=== PATIENT | male | born 1970 | race Caucasian/White ===

== ENCOUNTER 2024-01-07 13:59 | Emergency (ER) | payer OTHER, MEDICARE, SELFPAY ==
[2024-01-07] VITALS (7 sets, daily range): BP systolic 102–159; BP diastolic 47–103; PULSE 81–106; RESP 9–20; TEMP 36.5–36.8; O2SAT 97–98
--- NOTE | 2024-01-07 14:15 | DI.CT_ITS ---
Exam(s) CT HEAD WO EXAM: CT HEAD WO CLINICAL HISTORY: ams. TECHNIQUE: Imaging Protocol: Axial computed tomography images with coronal and sagittal reformatted images were created and reviewed COMPARISON: No exams were available for comparison FINDINGS: Ventricles and Extra axial spaces: Normal in size and morphology for the patient's age. Hemorrhage: None. Cerebral parenchyma: Normal. Midline shift: None. Brainstem/Cerebellum: Normal. Calvarium: Normal. Visualized Paranasal sinuses/Mastoids: Clear. Soft Tissues: Unremarkable. IMPRESSION: No acute intracranial process. RADIATION DOSE DELIVERED: Total DLP DATA REPOSITORY: All CT scans at this facility are submitted to the National Radiology Data Registry (NRDR) Dose Index Registry (DIR) with the [employer] ([employer]). RADIATION OPTIMIZATION: All CT scans at this facility use at least one of these dose optimization te chniques: automated exposure control; mA and/or kV adjustment per patient size (includes targeted exa ms where dose is matched to clinical indication); or iterative reconstruction.
--- NOTE | 2024-01-07 14:15 | RT.EKG_ITS ---
APPROVED REPORT Exam: Resting ECG Reason for Exam: ams Patient Location: E HR:79 bpm ECG Measurements Heart Rate 79 AXIS AR 179 P 65 QRSd 78 QRS 53 QT 372 T 60 QTc 427 Conclusion Sinus rhythm 79 normal axis no stemi
--- NOTE | 2024-01-07 14:22 | ED.GENADUL_ITS ---
Discharge Plan Disposition Patient Disposition: Home Discharge Details Clinical Impression: Hypoglycemia, Altered mental status, Hypokalemia Primary Care Provider: Yobany Fuller ED Provider: Meka Calderon Home Meds and New Rx's Prescriptions: No Action atorvastatin [Lipitor] 80 mg tablet 80 mg PO DAILY pantoprazole 40 mg tablet,delayed release (DR/EC) 40 mg PO DAILY ibuprofen 800 mg tablet 800 mg PO TID PRN bupropion HCl 300 mg tablet extended release 24 hr 300 mg PO QAM Incruse Ellipta 62.5 mcg/actuation blister with device 1 inh IH Q24H (DME) Truetrack Test 1 EACH strip 1 ea Miscellaneous BID levothyroxine [Synthroid] 25 MCG tablet 25 mcg PO DAILY (DME) blood-glucose meter [Truetrack Blood Glucose System] 1 EACH kit 1 ea Miscellaneous BID insulin aspart U-100 [Novolog U-100 Insulin aspart] 100 UNIT/1 ML solution 20 sliding scale dose Sub-Q DIRECTED Rx Instructions: 20 units TID as needed per sliding scale glucose 4 GM tablet,chewable 5 gm PO TID PRN montelukast [Singulair] 10 MG tablet 10 mg PO DAILY gabapentin 100 MG capsule 100 mg PO AM Patient Comments: 02/14/18 PER PT. TAKES 100 MG AM, AND AT 1200 PM AND 300 MG AT HS. lisinopril 40 MG tablet 40 mg PO DAILY albuterol sulfate 5 MG/1 ML solution 2.5 mg Inhalation Q4H PRN Levemir U-100 Insulin 100 UNIT/1 ML solution Sub-Q DIRECTED budesonide-formoterol [Symbicort] 10.2 GM HFA aerosol inhaler 2 puff Inhalation BID ProAir RespiClick 90 MCG aerosol powdr breath activated 90 mcg Inhalation Q4H PRN TRUETRACK LANCETS Topical BID Tudorza Pressair 400 MCG aerosol powdr breath activated 400 mcg Inhalation Q12H PRN allopurinol 300 MG tablet 300 mg PO DAILY lamotrigine 25 MG tablet 25 mg PO BID oxycodone 15 MG tablet 15 mg PO Q6H PRN Hold Instructions: fired from pain management contract oxycodone [OxyContin] 60 MG tablet,oral only,ext.rel.12 hr 60 mg PO Q12H PRN Hold Instructions: fired from pain management program insulin glargine [Basaglar KwikPen U-100 Insulin] 100 unit/mL (3 mL) insulin pen 10 unit subcut QPM methadone 40 mg tablet,soluble 40 mg PO DAILY Discharge Instructions Instructions: Hypoglycemia in a Person with Diabetes (ED) Additional Instructions: monitor you blood glucose levels take medications as prescribed you've been placed on care management follow up to establish primary care Discharge Data Discharge Date/Time-TO BE ENTERED AT DEPARTURE: 01/07/24 16:52 HPI General Date/Time Provider Initiated Documentation: 01/07/24 14:02 . Limitations to Documentation: altered mental status . Information obtained by: patient, family and EMS . HPI Narrative: 53-year-old gentleman with past medical history of opiate use disorder, now on methadone, diabetes, now on insulin, hypertension presents for evaluation of altered mental status. Patient reports that his blood sugar was high in the 300s this morning and he gave himself his sliding dose insulin which was 10 units. He does have a Dexcom monitor in place. He reports that his blood sugar then dropped down to the 40s. His partner, at bedside, reports giving him chocolate and other candies and juices to try and increase his blood sugar but she states that it seemed like it would not come up. She states that the patient seems very sleepy. EMS reports on their arrival his blood sugar was 116. On arrival to the emergency department it is measured at 160. Although his Dexcom is reading lower than that. He denies any drug or alcohol use. He does report that he did take his baclofen today. He reports that he also took his methadone this morning. He states that he recently started on methadone, this is the second day taking the medication. He denies any oxycodone use or any other opiate use. Related Data Home Medications Medication Instructions Recorded Confirmed Truetrack Lancets topical BID 11/01/17 01/01/19 albuterol sulfate 5 mg/mL(0.5 %) 2.5 mg inhalation Q4H PRN 11/01/17 01/07/24 solution for nebulization albuterol sulfate 90 mcg/actuation 90 mcg inhalation Q4H PRN 11/01/17 01/07/24 breath activated powder inhaler (ProAir RespiClick) blood sugar diagnostic (Truetrack 11/01/17 01/07/24 Test strips) blood-glucose meter (Truetrack 11/01/17 01/07/24 Blood Glucose System kit) budesonide-formoterol HFA 160 2 puff inhalation BID 11/01/17 01/07/24 mcg-4.5 mcg/actuation aerosol inhaler (Symbicort) gabapentin 100 mg capsule 100 mg PO AM 11/01/17 01/07/24 glucose 4 gram chewable tablet 5 gm PO TID PRN 11/01/17 01/07/24 insulin aspart U-100 100 unit/mL 20 sliding scale dose subcut 11/01/17 01/07/24 subcutaneous solution (Novolog DIRECTED U-100 Insulin aspart) insulin detemir U-100 100 unit/mL subcut DIRECTED 11/01/17 01/01/19 subcutaneous solution (Levemir U-100 Insulin) levothyroxine 25 mcg tablet 25 mcg PO DAILY 11/01/17 01/07/24 (Synthroid) lisinopril 40 mg tablet 40 mg PO DAILY 11/01/17 01/07/24 montelukast 10 mg tablet 10 mg PO DAILY 11/01/17 01/07/24 (Singulair) aclidinium bromide 400 400 mcg inhalation Q12H PRN 02/14/18 01/07/24 mcg/actuation breath activated powder inhaler (Tudorza Pressair) allopurinol 300 mg tablet 300 mg PO DAILY 02/14/18 01/07/24 lamotrigine 25 mg tablet 25 mg PO BID 02/14/18 01/07/24 oxycodone 15 mg tablet 15 mg PO Q6H PRN 02/14/18 01/07/24 oxycodone 60 mg tablet,crush 60 mg PO Q12H PRN 02/14/18 01/07/24 resistant,extended release 12 hr (OxyContin) atorvastatin 80 mg tablet (Lipitor) 80 mg PO DAILY 11/08/18 01/07/24 bupropion HCl 300 mg 24 hr tablet, 300 mg PO QAM 11/08/18 01/07/24 extended release ibuprofen 800 mg tablet 800 mg PO TID PRN 11/08/18 01/07/24 pantoprazole 40 mg tablet,delayed 40 mg PO DAILY 11/08/18 01/07/24 release umeclidinium 62.5 mcg/actuation 1 inh inhalation Q24H 11/08/18 01/07/24 blister powder for inhalation (Incruse Ellipta) insulin glargine 100 unit/mL (3 10 unit subcut QPM 01/07/24 01/07/24 mL) subcutaneous pen (Basaglar KwikPen U-100 Insulin) methadone 40 mg soluble tablet 40 mg PO DAILY 01/07/24 01/07/24 Allergies Allergy/AdvReac Type Severity Reaction Status Date / Time tapentadol HCl [From Nucynta] Allergy Severe DYSPNEA Unverified 01/07/24 15:14 naproxen [From Naprosyn] Allergy Intermediate RASH Unverified 01/07/24 15:14 varenicline tartrate Allergy Mild MOOD SWINGS Unverified 01/07/24 15:14 [From Chantix] SSRI Allergy Intermediate SEROTONIN Uncoded 01/07/24 15:14 SYNDROME General Stated Complaint: Diabetes ROQUE: 3 Exam Narrative Exam Narrative: Review of Systems: All systems reviewed & are unremarkable except as noted in HPI and below Well-developed, mild distress NCAT PERRL, pupils about 1 to 2 mm, normal conjunctiva Edentulous RRR, blood pressure low in the low 100s Unlabored respiratory effort, no hypoxia, clear bilaterally Nondistended abdomen, nontender Extremities w/o deformity, no cyanosis, no edema No rashes or lesions. Speaks to me with eyes closed, will open when I ask. Answers slowly, seems to fall asleep but wakes up with light stimuli. Partner reports speech seems slurred however without his teeth, I am not appreciating slurred speech more slurred speech. No facial droop or asymmetry, normal strength and so it sensation throughout Course Vital Signs Vital signs: Vital Signs Pulse 83 01/07/24 14:00 Respiratory Rate 20 01/07/24 14:00 Blood Pressure 102/47 L 01/07/24 14:00 Pulse Oximetry 97 01/07/24 14:00 Temperature 36.5 C 01/07/24 14:18 Temperature Source Temporal Artery Scan 01/07/24 14:18 Pulse 83 01/07/24 14:00 Respiratory Rate 20 01/07/24 14:00 Respiratory Effort Normal 01/07/24 14:17 Blood Pressure 102/47 L 01/07/24 14:00 Blood Pressure Position Sitting 01/07/24 14:00 Pulse Oximetry 97 01/07/24 14:00 Oxygen Delivery Method Room Air 01/07/24 14:00 Oxygen Flow Rate 0 01/07/24 14:00 Pain Level 0 01/07/24 14:00 Medical Decision Making Emergent evaluation of altered mental status and hypoglycemia. Patient is not on any oral hypoglycemic agents. Concern for possible opiate involvement or polypharmacy causing his depressed mental status at this time. Right now there are no signs of infectious etiology. His blood sugar seems to be maintaining. Will evaluate lab work, urinalysis, drug screen, alcohol level and CT imaging of the head to evaluate for possible sources of altered mental status. Will monitor closely for any worsening. Right now the patient is maintaining his airway. I have considered giving Narcan, but he is awake and alert enough and protecting his airway that I do not feel is indicated at this time. 1500 patient reports to nurse that the methadone clinic gave him tomorrow's dose because they'll be closed for Easter. My suspicion is that he has taken both doses today and this is the cause of his depressed mental status, tho he denies taking two doses today. Labs reviewed. No leukocytosis. No anemia. Potassium slightly low at 3.2, oral supplementation was given. No evidence of DKA or HHS on laboratory evaluation. No signs of urine infection. Tox positive for methadone, cocaine and THC. On reevaluation, the patient was sitting in bed with his partner ea ting an egg salad sandwich, completely alert and friendly. At this time he is stable for discharge home. He was placed on a referral for care management to help establish primary care. He is advised to monitor glucose levels closely and hopefully primary care can help manage his glucose instability. Medical Records Medical records reviewed: Yes I reviewed the patient's medical records. Lab Data Lab results reviewed: Yes I reviewed the patient's lab results. Quality:[facility] Health Related Social Needs: No Data to Display [facility] All Active Problems (Updated 01/07/24 @ 16:40 by Meka Calderon MD) Hypokalemia (Acute) Altered mental status (Acute) Hypoglycemia (Acute) Ulnar neuropathy of right upper extremity (Acute) Carpal tunnel syndrome on both sides (Acute) Medical History Pes planovalgus Rotator cuff syndrome Intermittent claudication [facility] (current[facility] use of insulin Controlled substance agreement signed Long-term use of high-risk medication Tobacco dependence Chronic pain syndrome Cervical radiculopathy Anxiety Depression Gout Leg cramps Insomnia COPD (chronic obstructive pulmonary disease) GERD (gastroesophageal reflux disease) Hypothyroidism Mixed hyperlipidemia Diabetes Benign essential hypertension Surgical History History of wisdom tooth extraction Family History Father No problems noted. Mother Cancer Brother HIV (human immunodeficiency virus infection) Social History Smoking/Tobacco Use Status: Current every day Tobacco Type: cigarettes Smoking risk assessment performed?: Yes Alcohol Intake: former Substance use type: marijuana Household members: spouse Housing: house current occupation: shipping and recieving at the [employer] What type of physical activity do you participate in: walking and additional Details: yard work, splitting wood
[2024-01-07 14:30] LABS: BE (Venous) 4 mmol/L (-2-3); HCO3 (Venous) 28 mmol/L (23-28); O2 Sat (Venous) 92 %; TCO2 (Venous) 26 mmol/L (24-29); pCO2 (Venous) 46 mmHg (41-51); pO2 (Venous) 55 mmHg
[2024-01-07 14:36] LABS: Abs Immature Grans 0.04 10^3/uL (0.0-0.06); Absolute Basophil Count 0.06 10^3/uL (0.0-0.2); Absolute Eosinophil Count 0.28 10^3/uL (0.0-0.7); Absolute Lymphocyte Count 3.22 10^3/uL (1.2-3.4); Absolute Monocyte Count 0.62 10^3/uL (0.1-0.8); Absolute Neutrophil Count 5.89 10^3/uL (1.2-6.7); Basophils % 0.6; Eosinophils % 2.8; HCT 39.6 % (40.0-50.0); HGB 13.5 g/dL (13.5-17.5); Immature Grans % 0.4; Lymphocytes % 31.8; MCHC 34.1 % (32.0-36.0); MCV 85 fL (80-95); MPV 8.5 fL (8.0-11.0); Monocytes % 6.1; Neutrophils % 58.3; Platelet Count 394 10^3/uL (130-400); RBC 4.66 10^6/uL (4.36-5.78); RDW-SD 40.1 fL; WBC 10.11 10^3/uL (4.4-10.8)
[2024-01-07 14:56] LABS: ALT 20 U/L (16-63); AST 12 U/L (15-37); Albumin 3.9 g/dL (3.4-5.0); Alkaline Phosphatase 65 U/L (46-116); BUN 16 mg/dL (7-18); Bilirubin, Total 0.4 mg/dL (0.2-1.0); Calcium 9.1 mg/dL (8.5-10.1); Chloride 102 mmol/L (98-107); ETHANOL BLOOD < 3.0 mg/dL (<10); Estimated GFR 91.12 (mL/min/1.73m2); Glucose 149 mg/dL (74-106); Magnesium 1.8 mg/dL (1.8-2.4); Potassium 3.2 mmol/L (3.5-5.1); Sodium 140 mmol/L (136-145); TSH 3.47 uIU/Ml (0.36-3.74); Total Protein 7.3 g/dL (6.4-8.2)
--- NOTE | 2024-01-07 16:01 | DI.VRAD_ITS ---
PROCEDURE INFORMATION: Exam: CT Head Without Contrast Exam date and time: 01/07/2024 2:40 PM Age: 53 years old Clinical indication: Altered mental status/memory loss TECHNIQUE: Imaging protocol: Computed tomography of the head without contrast. COMPARISON: No relevant prior studies available. FINDINGS: Brain: Unremarkable. No intracranial hemorrhage. Unremarkable white matter. No mass effect. Cerebral ventricles: No ventriculomegaly. Paranasal sinuses: Visualized sinuses are unremarkable. No fluid levels. Mastoid air cells: Visualized mastoid air cells are well aerated. Orbital cavities: Radiopaque densities are noted in the posterior aspect of the globe bilaterally and relative symmetrically may represent prior globe surgery. Dental: The patient is edentulous. Bones/joints: Postsurgical changes of the cervical spine. Soft tissues: Unremarkable. IMPRESSION: 1. No acute intracranial abnormality. 2. Radiopaque densities in the posterior aspect of the globes of uncertain etiology. Recommend MRI for further evaluation. Dictated and Authenticated by: Izzy Christine MD. Ordering:STAN Alcocer MD
[2024-01-07 16:19] LABS: Bilirubin Negative (Negative); Blood Negative (Negative); Clarity Clear (Clear); Glucose 500 mg/dL (Negative); Ketones Negative (Negative); Leukocyte Esterase Negative (Negative); Nitrite Negative (Negative); Specific Gravity 1.015 (1.005-1.025); Urobilinogen 0.2 mg/dL (Up to 0.2); pH 5.5 (5-8)
[2024-01-07 16:28] LABS: *AMPHETAMINES SCREEN URINE Negative (Negative); *BARBITURATES SCREEN URINE Negative (Negative); *BENZODIAZEPINES SCREEN URINE Negative (Negative); Cannabinoids THC Positive (Negative); Cocaine Screen,Urine Positive (Negative); METHADONE URINE SCREEN Positive (Negative); OPIATES URINE SCREEN Negative (Negative); Tricyclic Antidepressants Negative (Negative)
--- NOTE | 2024-01-07 16:51 | NUR.NOTE ---
Referral given to Care Managers for assistance Obtaining a Primary Care Provider as soon as possible.
== END 2024-01-07 16:52 | disposition home or self-care (01) ==
LOC: ER 16:49
PROVIDERS: Emergency Provider Emergency Medicine; PCP Nurse Practitioner
DX: E87.6 Hypokalemia (principal); R41.82 Altered mental status, unspecified; E16.2 Hypoglycemia, unspecified; F11.20 Opioid dependence, uncomplicated
CPT/HCPCS: 80053; 80307; 82805; 93005; 99283; 70450; 80320; 81003; 83735; 84443; 85025; 93010

== ENCOUNTER 2024-02-03 15:34 | Outpatient (REF) | payer MEDICARE, SELFPAY ==
[2024-02-03 15:22] LABS: COMMENT (LAB VIEW ONLY) 151.65 mg/dL; Microalb ug/mg Crea 7.5 ug/mg Cr
[2024-02-03 16:03] LABS: Hemoglobin A1C 9.8 % (<5.7)
[2024-02-03 22:08] LABS: Rheumatoid Factor <8.6 IU/mL (<12.0)
[2024-02-06 09:38] LABS: Cyclic Citrullinated Peptide <2.5 U/mL (<5.0)
[2024-02-06 11:41] LABS: Lyme Ab w Rflx to Lyme Confirm Negative (Negative)
[2024-02-06 13:50] LABS: ANA Interpretation Negative (Negative)
[2024-02-07 15:49] LABS: Anaplasma phagocytophilum Negative (Negative); B. miyamotoi PCR Negative (Negative); Babesia divergens/MO-1 Negative (Negative); Babesia duncani Negative (Negative); Babesia microti Negative (Negative); Ehrlichia chaffeensis Negative (Negative); Ehrlichia ewingii/canis Negative (Negative); Ehrlichia muris eauclairensis Negative (Negative)
== END 2024-02-03 15:35 | disposition home or self-care (01) ==
LOC: NCHCN 15:34
PROVIDERS: PCP Nurse Practitioner; Visit Provider Student in an Organized Health Care Education/Training Program
DX: E11.9 Type 2 diabetes mellitus without complications (principal); M25.561 Pain in right knee
CPT/HCPCS: 86200; 87798; 82043; 82570; 83036; 86038; 86431; 86618

== ENCOUNTER → 2024-02-29 01:43 | Outpatient (CLI) | payer MEDICARE, MEDICAID, SELFPAY ==
--- NOTE | 2024-02-29 | DI.RAD_ITS ---
Exam(s) XR HAND LT COMPLETE EXAM: XR HAND LT COMPLETE CLINICAL HISTORY: LT HAND PAIN, M79.642,NODULE LT SIDE 5TH METACARPAL. TECHNIQUE: 2D digital imaging was performed. Three views. COMPARISON: CR XR HAND RT COMPLETE from 02/29/2024 FINDINGS: BONES: No acute fracture is present. No bony destructive lesion is seen. Benign-appearing cyst in th e distal ulna. JOINTS: No dislocation present. No significant degenerative changes . SOFT TISSUE: A BB marker was placed at the soft tissue nodule at the dorsum of the hand at the 5th me tacarpal. There is a visible soft tissue prominence containing a calcification.. IMPRESSION: Soft tissue nodule containing calcification. No bony abnormality. DATA REPOSITORY: RADIATION DOSE DELIVERED:
--- NOTE | 2024-02-29 | DI.RAD_ITS ---
Exam(s) XR HAND RT COMPLETE EXAM: XR HAND RT COMPLETE CLINICAL HISTORY: RT HAND PAIN, M79.641,? JOINT CHANGES. TECHNIQUE: 2D digital imaging was performed. COMPARISON: No exams were available for comparison FINDINGS: 3 views No evidence of fracture or dislocation. No degenerative changes are noted the 1st carpometacarpal vijaya int. There is a BB marker on the dorsal aspect of the wrist. No osseous lesion at this level. No s oft tissue calcifications. Small soft tissue density noted. IMPRESSION: No acute osseous findings. DATA REPOSITORY: RADIATION DOSE DELIVERED:
== END ==
PROVIDERS: PCP Nurse Practitioner; Visit Provider Student in an Organized Health Care Education/Training Program
DX: M79.641 Pain in right hand (principal); M79.642 Pain in left hand
CPT/HCPCS: 73130

== ENCOUNTER 2024-03-09 01:09 | Outpatient (CLI) | payer MEDICARE, MEDICAID, SELFPAY ==
--- NOTE | 2024-03-12 10:26 | W.NUTRFU ---
Date of service: 03/09/24 Time of Service: 12:00 Nutrition Note NOTE: Ashkan comes in for referred nutrition visit today with his gf, Smitha, regarding diabetes education/mgt. Pt is a 53yo male who is insulin dependent type II diabetic, with a PMH including HLD, Depression, Anxiety, current tobacco use, HTN, Gout, COPD, hpothyroidism, opiod dependency. Ashkan is anxious about today's appointment and Smitha is good at reassuring him and takes notes during our visit as they have indicated Ashkan is forgetful and has a lower level of understanding concepts regarding management of diabetes and diet terms, etc... I asked about insulin and he seems to be a poor historian. He does not check his glucose at home and seems to go around chasing his symtoms of highs and lows. He has a very high added sugar intake and we reviewed his coffee intake with 5-6 spoons of sugar in each one at multiple cups per day. I highlighted this has to change as his sugars are shooting up and then having concerns with lows (which symptoms probably occuring at higher ranges than normal due to him normally living in hyperglycemic state. His regular diet, from verbal recall, is high in refined grains and added sugar, low in fiber and non-starchy veggies. He does walk about 3 miles per day. We spent the bulk of time reviewing his recommended carb goal of ~200g per day or ~12 servings of CHO foods - we looked at handout and reviewed sources of carbs and also highlighted added sugar intake needs to <40g per day. Discussing general good nutrition practices were discussed at length. We discussed insulin as he seems confused on what his current regimen is and doesn't know his sliding scale for insulin aspart. I am a little in the dark as well as it seems there is not a reliable medical record history with his current provider at the time of referral. States he was told to stop the aspart (maybe getting too many lows with inappropriate dosing?). Reviewed that he needs to know his glucose with meal time insulin if he's going to take it and offered CGM ([employer] G7) but his phone would not support the yolanda as his OS is not compatible. He does have a tablet at home so sent him with the CGM and Smitha will help with finding the yolanda and getting the sensor placed on his tricep area as we reviewed. Has Rx for Levemir and we reviewed taking this at night and instructions for increasing every 3 days by 2 units until FBG is <140. Made plan to call him and check about how CGM is working and glucose numbers. Will continue to reach out for support and insulin education as it is it is modified. Time Spent in Nutritional Counseling and Treatment: 45 minutes
== END 2024-03-09 01:10 | disposition home or self-care (01) ==
LOC: DS 01:10
PROVIDERS: PCP Nurse Practitioner; Visit Provider Dietitian, Registered
DX: E11.9 Type 2 diabetes mellitus without complications (principal)
CPT/HCPCS: 00123; 97802

== ENCOUNTER 2024-04-15 12:26 | Emergency (ER) | payer MEDICARE, MEDICAID, SELFPAY ==
[2024-04-15 12:30] VITALS: BP 128/69; PULSE 85; RESP 17; TEMP 36.6; O2SAT 99
--- NOTE | 2024-04-15 13:45 | DI.RAD_ITS ---
Exam(s) XR CHEST 2V PA LATERAL EXAM: XR CHEST 2V PA LATERAL CLINICAL HISTORY: sob. TECHNIQUE: 2D digital imaging was performed. COMPARISON: No exams were available for comparison FINDINGS: 2 views: Anterior fusion plate in the lower cervical spine noted. Heart size is normal. The mediastinum is not widened. No radiograph findings on the frontal view. However, on the lateral view there is pleural based post erior density seen projected over what appears to be T12 vertebral body. Difficult to determine if t his is in the vertebral body or within the lung at this level. There is a wedge compression fracture of L1, age indeterminate IMPRESSION: Nodular density posteriorly as seen on the lateral view. Recommend follow-up CT scan to determine if this is concerning pathology in the lung or vertebral body. DATA REPOSITORY: RADIATION DOSE DELIVERED:
[2024-04-15 14:22] VITALS: BP 132/63; PULSE 59; O2SAT 97
--- NOTE | 2024-04-15 14:37 | ED.GENADUL_ITS ---
Discharge Plan Disposition Patient Disposition: Home Condition: Stable Discharge Details Clinical Impression: Contusion of rib on left side, Seizure Primary Care Provider: Unknown,Unknown ED Provider: Meka Calderon Home Meds and New Rx's Prescriptions: New levetiracetam [Keppra] 500 mg tablet 500 mg PO BID Qty: 60 0RF lidocaine [Lidoderm] 5 % adhesive patch,medicated 1 patch topical DAILY Qty: 15 0RF Rx Instructions: leave on most painful area for up to 12 hrs No Action atorvastatin [Lipitor] 80 mg tablet 80 mg PO DAILY bupropion HCl 300 mg tablet extended release 24 hr 300 mg PO QAM Patient Comments: 1/2 tab (DME) Truetrack Test 1 EACH strip 1 ea Miscellaneous BID levothyroxine [Synthroid] 25 MCG tablet 25 mcg PO DAILY (DME) blood-glucose meter [Truetrack Blood Glucose System] 1 EACH kit 1 ea Miscellaneous BID insulin aspart U-100 [Novolog U-100 Insulin aspart] 100 UNIT/1 ML solution 20 sliding scale dose Sub-Q DIRECTED Rx Instructions: 20 units TID as needed per sliding scale glucose 4 GM tablet,chewable 5 gm PO TID PRN lisinopril 40 MG tablet 20 mg PO DAILY albuterol sulfate 5 MG/1 ML solution 2.5 mg Inhalation Q4H PRN (DME) TRUETRACK LANCETS 0 .ROUTE .MEDSUPPLY Tudorza Pressair 400 MCG aerosol powdr breath activated 400 mcg Inhalation Q12H PRN allopurinol 300 MG tablet 100 mg PO BID insulin glargine [Basaglar KwikPen U-100 Insulin] 100 unit/mL (3 mL) insulin pen 10 unit subcut QPM baclofen 20 mg tablet 20 mg PO TID metformin 500 mg tablet 500 mg PO BID Discharge Instructions Instructions: Rib Fracture or Bruised Rib ED Additional Instructions: * Continue Motrin and Tylenol for pain. Lidocaine patch to the area of rib injury. There is no obvious fracture noted. * Use the incentive spirometer at least once hourly so that you can practice reginald ing deep breaths and avoid developing pneumonia * Please start seizure medication as prescribed. A referral has been placed for you to follow-up with neurology. Referrals: Emily Castelan MD [ [facility] STAFF PHYSICIAN] - Discharge Data Discharge Date/Time-TO BE ENTERED AT DEPARTURE: 04/15/24 16:46 HPI General Date/Time Provider Initiated Documentation: 04/15/24 12:36 . Limitations to Documentation: no limitations . Information obtained by: patient and family . HPI Narrative: 53-year-old gentleman with past medical history of COPD, hypertension, diabetes, seizure disorder presents for evaluation left rib pain. He reports that he has bruising and swelling to the left chest wall after a fall yesterday. He reports he fell because he had a seizure. He states that he does have a history of seizures, but has not been medicated for some time. His regional operations director states that he did have 2 seizures yesterday. She describes his seizures stiffness and generalized shaking. No urinary incontinence no tongue biting. She reports that he reports that. Of confusion and not knowing where he is afterwards. He states that his last seizure before this was about 7 days ago. He states that he has seizures this frequently and does not take medicine. Related Data Home Medications Medication Instructions Recorded Confirmed Truetrack Lancets 11/01/17 04/15/24 albuterol sulfate 5 mg/mL(0.5 %) 2.5 mg inhalation Q4H PRN 11/01/17 04/15/24 solution for nebulization blood sugar diagnostic (Truetrack 11/01/17 04/15/24 Test strips) blood-glucose meter (Truetrack 11/01/17 04/15/24 Blood Glucose System kit) glucose 4 gram chewable tablet 5 gm PO TID PRN 11/01/17 04/15/24 insulin aspart U-100 100 unit/mL 20 sliding scale dose subcut 11/01/17 04/15/24 subcutaneous solution (Novolog DIRECTED U-100 Insulin aspart) levothyroxine 25 mcg tablet 25 mcg PO DAILY 11/01/17 04/15/24 (Synthroid) lisinopril 40 mg tablet 20 mg PO DAILY 11/01/17 04/15/24 aclidinium bromide 400 400 mcg inhalation Q12H PRN 02/14/18 04/15/24 mcg/actuation breath activated powder inhaler (Tudorza Pressair) allopurinol 300 mg tablet 100 mg PO BID 02/14/18 04/15/24 atorvastatin 80 mg tablet (Lipitor) 80 mg PO DAILY 11/08/18 04/15/24 bupropion HCl 300 mg 24 hr tablet, 300 mg PO QAM 11/08/18 04/15/24 extended release insulin glargine 100 unit/mL (3 10 unit subcut QPM 01/07/24 04/15/24 mL) subcutaneous pen (Basaglar KwikPen U-100 Insulin) baclofen 20 mg tablet 20 mg PO TID 04/15/24 04/15/24 levetiracetam 500 mg tablet 500 mg PO BID #60 tabs 04/15/24 (Keppra) lidocaine 5 % topical patch 1 patch topical DAILY #15 ea 04/15/24 (Lidoderm) metformin 500 mg tablet 500 mg PO BID 04/15/24 04/15/24 Previous Rx's Medication Instructions Recorded levetiracetam 500 mg tablet 500 mg PO BID #60 tabs 04/15/24 (Keppra) lidocaine 5 % topical patch 1 patch topical DAILY #15 ea 04/15/24 (Lidoderm) Allergies Allergy/AdvReac Type Severity Reaction Status Date / Time tapentadol HCl [From Nucynta] Allergy Severe DYSPNEA Unverified 04/15/24 14:03 naproxen [From Naprosyn] Allergy Intermediate RASH Unverified 04/15/24 14:03 varenicline tartrate Allergy Mild MOOD SWINGS Unverified 04/15/24 14:03 [From Chantix] SSRI Allergy Intermediate SEROTONIN Uncoded 04/15/24 14:03 SYNDROME General Stated Complaint: Chest/Rib ROQUE: 3 Exam Narrative Exam Narrative: Review of Systems: All systems reviewed & are unremarkable except as noted in HPI and below Well-developed, no acute distress NCAT PERRL, normal conjunctiva Multiple missing teeth, no intraoral trauma RRR bruising over left lateral lower ribs no crepitus Unlabored respiratory effort, pain with deep inspriation, clear bs bilaterally Nondistended abdomen , soft nontender Extremities w/o deformity, no cyanosis, no edema No rashes or lesions. no focal neurologic deficits Appropriate mood and affect Course Vital Signs Vital signs: Vital Signs Temperature 36.6 C 04/15/24 12:30 Pulse 85 04/15/24 12:30 Respiratory Rate 17 04/15/24 12:30 Blood Pressure 128/69 04/15/24 12:30 Pulse Oximetry 99 04/15/24 12:30 Temperature 36.6 C 04/15/24 12:30 Temperature Source Oral 04/15/24 12:30 Pulse 59 L 04/15/24 14:22 Respiratory Rate 17 04/15/24 12:30 Respiratory Effort Normal, Non-Labored 04/15/24 14:14 Respiratory Depth Normal 04/15/24 14:14 Respiratory Pattern Normal 04/15/24 14:14 Blood Pressure 132/63 04/15/24 14:22 Blood Pressure Position Sitting 04/15/24 12:30 Pulse Oximetry 97 04/15/24 14:22 Oxygen Delivery Method Room Air 04/15/24 14:22 Oxygen Flow Rate 0 04/15/24 14:22 Pain Level 8 04/15/24 14:22 Medical Decision Making Emergent evaluation of lateral chest wall pain after a fall from a seizure. Patient reports history of seizures, but is not currently medicated. Concern for possible rib fracture, pulmonary contusion. Also given his repeated seizures yesterday, concern for electrolyte derangement, intracranial process. He is unclear about what causes him to have seizures. Patient is amenable to getting blood work and CT imaging. Will load with Keppra. 1445 Chest x-ray reviewed, no obvious rib fracture noted, but there is an abnormality the posterior aspect, they are recommending CT imaging. Will order. ED imaging of the head is unremarkable. Chest CT does not reveal any fracture or abnormalities concurrent with the concern seen on the chest x-ray. Lab work reviewed. Mild anemia noted which should be followed by PCP. No electrolyte derangement. Mild hyperglycemia without evidence of DKA. Patient has been loaded with Keppra and a prescription has been sent to the pharmacy. He has been referred to neurology for follow-up of his recurrent seizures. He is recommended to follow-up closely with PCP for ongoing symptoms. Medical Records Medical records reviewed: Yes I reviewed the patient's medical records. Lab Data Lab results reviewed: Yes I reviewed the patient's lab results. 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 Mother Cancer Brother HIV (human immunodeficiency virus infection) Social History Smoking/Tobacco Use Status: Current every day Tobacco Type: cigarettes Smoking risk assessment performed?: Yes Alcohol Intake: former Drug use: Occasionally Substance use type: marijuana Household members: spouse Housing: house current occupation: shipping and recieving at the [employer] What type of physical activity do you participate in: walking and additional Details: yard work, splitting wood
--- NOTE | 2024-04-15 14:45 | DI.CT_ITS ---
Exam(s) CT CHEST WO EXAM: CT CHEST WO CLINICAL HISTORY: cxr abnormality. TECHNIQUE: Multi planar reconstructions were performed. CONTRAST MATERIAL: None COMPARISON: CR XR CHEST 2V PA LATERAL from 04/15/2024 FINDINGS: CHEST: LUNGS: There are slightly increased dependent markings in both lung bases, slightly more so on the le ft side, bordering on true infiltrate. No associated pleural effusions. There is a 4 millimeter aysha cified granuloma in posterior basal segment of the left lower lobe. No ominous pulmonary nodules kassy dent. Sclerotic density noted in the bilateral pedicles of T12 vertebral body which most probably co rresponds to the finding seen on the lateral chest x-ray. Similar findings not seen at other levels. No abnormal osseous findings in the transverse process is and medial ribs at this level.. There is a moderate wedge compression fracture of L1 noted, not appearing acute. MEDIASTINUM: There is no obvious hilar nor mediastinal adenopathy. Density in the anterior mediastina l fat noted which is probably thymus tissue. There is also slight prominence of the lobes of the thy roid gland. There is a fusion plate in the lower cervical spine noted.No obvious hilar nor mediastin al adenopathy. No axillary adenopathy. No supraclavicular adenopathy. Mild bilateral gynecomastia noted. CARDIAC: Heart size upper normal. No pericardial effusion.Caliber of the thoracic aorta is within no rmal limits. VISUALIZED UPPER ABDOMEN:Small gallstone noted. No significant adrenal masses. No splenomegaly. Ca lcifications are noted in the pancreatic head-uncinate process. OSSEOUS: As above.. IMPRESSION: 1. As above. Mild infiltrate in left lower lobe. No pleural effusions. 2. Benign-appearing osseous findings 3. No malignant-appearing findings to correspond to the density seen posteriorly on the lateral chest x-ray earlier today. Discussed by phone with ER physician RADIATION DOSE DELIVERED: 434.71mGy.cm Total DLP DATA REPOSITORY: All CT scans at this facility are submitted to the National Radiology Data Registry (NRDR) Dose Index Registry (DIR) with the [employer] (ACR). RADIATION OPTIMIZATION: All CT scans at this facility use at least one of these dose optimization te chniques: automated exposure control; mA and/or kV adjustment per patient size (includes targeted exa ms where dose is matched to clinical indication); or iterative reconstruction.
[2024-04-15 14:51] LABS: Abs Immature Grans 0.03 10^3/uL (0.0-0.06); Absolute Basophil Count 0.04 10^3/uL (0.0-0.2); Absolute Eosinophil Count 0.18 10^3/uL (0.0-0.7); Absolute Lymphocyte Count 2.03 10^3/uL (1.2-3.4); Absolute Monocyte Count 0.51 10^3/uL (0.1-0.8); Absolute Neutrophil Count 5.55 10^3/uL (1.2-6.7); Basophils % 0.5 %; Eosinophils % 2.2 %; HCT 36.7 % (40.0-50.0); HGB 12.4 g/dL (13.5-17.5); Immature Grans % 0.4 %; Lymphocytes % 24.3 %; MCH 29.3 pg (27.0-33.0); MCHC 33.8 % (32.0-36.0); MCV 87 fL (80-95); MPV 9.2 fL (8.0-11.0); Monocytes % 6.1 %; Neutrophils % 66.5 %; Platelet Count 256 10^3/uL (130-400); RBC 4.23 10^6/uL (4.36-5.78); RDW 13.3 % (11.8-14.1); RDW-SD 41.9 fL; WBC 8.34 10^3/uL (4.4-10.8)
[2024-04-15] MEDS: Lidocaine 5% Patch 1 PATCH TP (14:53)
[2024-04-15 15:06] LABS: ALT 18 U/L (16-63); AST 10 U/L (15-37); Albumin 3.5 g/dL (3.4-5.0); Alkaline Phosphatase 77 U/L (46-116); Anion Gap 6.8 mmol/L (3-11); BUN 12 mg/dL (7-18); Bilirubin, Total 0.29 mg/dL (0.2-1.0); CO2 29.2 mmol/L (21.0-32.0); Calcium 8.6 mg/dL (8.5-10.1); Chloride 104 mmol/L (98-107); Creatine Kinase 176 U/L (39-308); Estimated GFR 91.12 (mL/min/1.73m2); Glucose 234 mg/dL (74-106); Magnesium 1.8 mg/dL (1.8-2.4); Potassium 3.9 mmol/L (3.5-5.1); Sodium 140 mmol/L (136-145); Total Protein 6.9 g/dL (6.4-8.2)
--- NOTE | 2024-04-15 15:11 | DI.CT_ITS ---
Exam(s) CT HEAD WO EXAM: CT HEAD WO CLINICAL HISTORY: Seizure. TECHNIQUE: Imaging Protocol: Axial computed tomography images with coronal and sagittal reformatted images were created and reviewed COMPARISON: CT CT HEAD WO from 01/07/2024 FINDINGS: There are no skull fractures. There is no fluid in the visualized paranasal sinuses. There is no evidence of intracranial hemorrhage, mass effect, or shift of midline structures. There are no extra-axial fluid collections. The ventricles are not enlarged or shifted and there is no blo od within the ventricular system nor within the basal cisterns. IMPRESSION: No acute intracranial findings on this noninfused CT scan of the brain. No significant change compared to the CT scan of 01/07/2024. Report called by myself to ER provider RADIATION DOSE DELIVERED: 936.1mGy.cm Total DLP DATA REPOSITORY: All CT scans at this facility are submitted to the National Radiology Data Registry (NRDR) Dose Index Registry (DIR) with the [employer] (ACR). RADIATION OPTIMIZATION: All CT scans at this facility use at least one of these dose optimization te chniques: automated exposure control; mA and/or kV adjustment per patient size (includes targeted exa ms where dose is matched to clinical indication); or iterative reconstruction.
--- NOTE | 2024-04-15 15:17 | NUR.NOTE ---
Nursing Note: This RN resuming care of pt at this time
== END 2024-04-15 16:46 | disposition home or self-care (01) ==
PROVIDERS: Emergency Provider Emergency Medicine
DX: S20.212A Contusion of left front wall of thorax, initial encounter (principal); R56.9 Unspecified convulsions; E11.9 Type 2 diabetes mellitus without complications; W19.XXXA Unspecified fall, initial encounter
CPT/HCPCS: 36416; 71250; 80053; 82550; 82962; 96365; 99285; 70450; 71046; 83735; 85025; 99283; J1953

== ENCOUNTER 2024-05-03 22:38 | Emergency (ER) | payer MEDICARE, MEDICAID, SELFPAY ==
--- NOTE | 2024-05-03 22:30 | RT.EKG_ITS ---
APPROVED REPORT Exam: Resting ECG Reason for Exam: SYNCOPE Patient Location: E HR:74 bpm ECG Measurements Heart Rate 74 AXIS NJ 192 P 81 QRSd 97 QRS 73 QT 445 T 120 QTc 496 Conclusion Sinus rhythm...normal P axis, V-rate 60- 99 Abnormal T, consider ischemia, lateral leads...T <-0.20mV, I aVL V5 V6 Physician:no stemi
[2024-05-03 22:43] VITALS: BP 159/79; PULSE 83; RESP 18; TEMP 37.4; O2SAT 99
--- NOTE | 2024-05-03 22:45 | DI.CT_ITS ---
Exam(s) CT HEAD CERVICAL SPINE WO EXAM: CT HEAD CERVICAL SPINE WO CLINICAL HISTORY: fall, loc, hit head, seizure?. TECHNIQUE: Imaging Protocol: Axial computed tomography images with coronal and sagittal reformatted images were created and reviewed COMPARISON: CT CT HEAD WO from 04/15/2024 FINDINGS: CT Head: Ventricles and Extra axial spaces: Normal in size and morphology for the patient's age. Hemorrhage: None. Cerebral parenchyma: No evidence of an acute territorial infarct. Midline shift: None. Brainstem/Cerebellum: Normal. Calvarium: Normal. Visualized Paranasal sinuses/Mastoids: Clear. Soft Tissues: Unremarkable. CT Cervical Spine: Bones: No acute fracture or subluxation. There is anterior cervical disc fusion from C5 through C7. Moderately severe degenerative changes are present throughout the cervical spine. Soft Tissues: Unremarkable. Lung Apices: Clear. IMPRESSION: 1. No acute intracranial process. 2. No acute fracture or subluxation in the cervical spine. RADIATION DOSE DELIVERED: Total DLP DATA REPOSITORY: All CT scans at this facility are submitted to the National Radiology Data Registry (NRDR) Dose Index Registry (DIR) with the [employer] (ACR). RADIATION OPTIMIZATION: All CT scans at this facility use at least one of these dose optimization te chniques: automated exposure control; mA and/or kV adjustment per patient size (includes targeted exa ms where dose is matched to clinical indication); or iterative reconstruction.
--- NOTE | 2024-05-03 22:45 | DI.CT_ITS ---
Exam(s) CT CHEST W EXAM: CT CHEST W CLINICAL HISTORY: fall, hit left chest, eval for trauma TECHNIQUE: Imaging Protocol: Axial computed tomography images with coronal and sagittal reformatted images were created and reviewed CONTRAST MATERIAL: Intravenous: Omnipaque 350Contrast volume:70 mL. COMPARISON: CT CT CHEST WO from 04/15/2024 FINDINGS: Tracheobronchial tree: Patent where visualized. No evidence of bronchiectasis. Pulmonary parenchyma: No consolidation or dominant measurable mass. Atelectatic changes are seen in t he lung bases. There are few tiny noncalcified pulmonary nodules. The largest is in the right upper lobe and measures 3 mm (series 5, image 258). There is a calcified granuloma in the left lower lobe . Mediastinum and Johanne: No dominant adenopathy or fluid collection. The esophagus is unremarkable. The re is some fluid seen in the esophagus which may reflect reflux. Thyroid gland: Unremarkable. Pleura: No effusion or pneumothorax. Heart: The heart is not dilated. Coronary artery calcifications are present. No pericardial effusion . Aorta: Thoracic aorta non-dilated. Mild atherosclerotic calcification is present. Pulmonary arteries: Due to the timing of the bolus, there is suboptimal opacification of the pulmonar y arteries. Upper abdomen: Gallstones. Calcifications are seen in the head of the pancreas which may reflect pr ior episodes of pancreatitis. Lymph nodes: Within normal limits. Bones: Within normal limits for the patient's age. There is a nondisplaced subacute healing fracture of the lateral aspect of the right 6th rib. Nondisplaced a subacute healing fractures of the anteri or aspects of the left 6th through 8th ribs are noted. No acute nondisplaced fractures are visualize d. There is again seen anterior wedging of L1. Soft tissues: Bilateral mild gynecomastia. IMPRESSION: 1. No acute pulmonary process. No acute displaced rib fractures. 2. A few nonspecific noncalcified nodules in the lungs. Solid nodules smaller than 6 mm do not require routine follow-up in all patients with high clinical r isk; however, some nodules smaller than 6 mm with suspicious morphology, upper lobe location, or both may warrant follow-up at 12 months (grade 2A; weak recommendation, high-quality evidence). (Gisselle et al., 2017) Single solid noncalcified nodules. ???Solid nodules smaller than 6 mm (those 5 mm or smaller) do not require routine follow-up in patients at low risk (grade 1C; strong recommendation, low- or very-low- quality evidence). (Gisselle et al., 2017) 3. Subacute healing nondisplaced rib fractures. 4. Cholelithiasis. RADIATION DOSE DELIVERED: Total DLP DATA REPOSITORY: All CT scans at this facility are submitted to the National Radiology Data Registry (NRDR) Dose Index Registry (DIR) with the [employer] (ACR). RADIATION OPTIMIZATION: All CT scans at this facility use at least one of these dose optimization te chniques: automated exposure control; mA and/or kV adjustment per patient size (includes targeted exa ms where dose is matched to clinical indication); or iterative reconstruction.
[2024-05-03 22:52] LABS: BE (Venous) 3 mmol/L (-2-3); HCO3 (Venous) 29 mmol/L (23-28); O2 Sat (Venous) 95 %; TCO2 (Venous) 26 mmol/L (24-29); pCO2 (Venous) 49 mmHg (41-51); pH (Venous) 7.37 (7.31-7.41); pO2 (Venous) 72 mmHg
[2024-05-03 22:54] LABS: Abs Immature Grans 0.05 10^3/uL (0.0-0.06); Absolute Basophil Count 0.07 10^3/uL (0.0-0.2); Absolute Eosinophil Count 0.38 10^3/uL (0.0-0.7); Absolute Lymphocyte Count 4.37 10^3/uL (1.2-3.4); Absolute Neutrophil Count 4.72 10^3/uL (1.2-6.7); Basophils % 0.7 %; Eosinophils % 3.7 %; HCT 37.2 % (40.0-50.0); Immature Grans % 0.5 %; Lymphocytes % 42.9 %; MCH 29.5 pg (27.0-33.0); MCHC 34.9 % (32.0-36.0); MCV 84 fL (80-95); MPV 9.1 fL (8.0-11.0); Monocytes % 5.9 %; Neutrophils % 46.3 %; Platelet Count 297 10^3/uL (130-400); RBC 4.41 10^6/uL (4.36-5.78); RDW 13.2 % (11.8-14.1); RDW-SD 40.8 fL; WBC 10.19 10^3/uL (4.4-10.8)
[2024-05-03] MEDS: levETIRAcetam 2,000 MG in Normal Saline 100 ML 400 MG IVPB (22:56)
[2024-05-03 22:57] VITALS: RESP 18
--- NOTE | 2024-05-03 23:00 | ED.GENADUL_ITS ---
Discharge Plan Disposition Patient Disposition: Home Condition: Good Discharge Details Chief Complaint: AMS/LOC Clinical Impression: Concussion, Alcohol intoxication, Syncope Primary Care Provider: Brad Martino ED Provider: Ryan Banda Home Meds and New Rx's Prescriptions: No Action atorvastatin [Lipitor] 80 mg tablet 80 mg PO DAILY bupropion HCl 300 mg tablet extended release 24 hr 300 mg PO QAM Patient Comments: 1/2 tab (DME) Truetrack Test 1 EACH strip 1 ea Miscellaneous BID levothyroxine [Synthroid] 25 MCG tablet 25 mcg PO DAILY (DME) blood-glucose meter [Truetrack Blood Glucose System] 1 EACH kit 1 ea Miscellaneous BID insulin aspart U-100 [Novolog U-100 Insulin aspart] 100 UNIT/1 ML solution 20 sliding scale dose Sub-Q DIRECTED Rx Instructions: 20 units TID as needed per sliding scale glucose 4 GM tablet,chewable 5 gm PO TID PRN lisinopril 40 MG tablet 20 mg PO DAILY albuterol sulfate 5 MG/1 ML solution 2.5 mg Inhalation Q4H PRN (DME) TRUETRACK LANCETS 0 .ROUTE .MEDSUPPLY Tudorza Pressair 400 MCG aerosol powdr breath activated 400 mcg Inhalation Q12H PRN allopurinol 300 MG tablet 100 mg PO BID insulin glargine [Basaglar KwikPen U-100 Insulin] 100 unit/mL (3 mL) insulin pen 10 unit subcut QPM baclofen 20 mg tablet 20 mg PO TID metformin 500 mg tablet 500 mg PO BID levetiracetam [Keppra] 500 mg tablet 500 mg PO BID Qty: 60 0RF lidocaine [Lidoderm] 5 % adhesive patch,medicated 1 patch topical DAILY Qty: 15 0RF Rx Instructions: leave on most painful area for up to 12 hrs Discharge Instructions Instructions: Syncope (Fainting) (DC), Concussion, Adult ED Additional Instructions: At this time your CAT scans have returned negative for any significant abnormality. I am concerned that you may have suffered a mild concussion from the trauma to your head. Please stay well-hydrated, avoid alcohol use, and resume taking your antiepileptic medication as soon as possible. If you notice any worsening of your symptoms, or any new symptoms such as vomiting, diarrhea, fever, chills, shortness of breath, chest pain, numbness, weakness, or fainting , please return immediately to the emergency department for reevaluation. Please follow up with your primary care provider as soon as possible for reassessment and reevaluation. As always, it was a pleasure participating in your medical care today. Referrals: Brad Martino [Primary Care Provider] - [facility] General Date/Time Provider Initiated Documentation: 05/03/24 22:39 . HPI Narrative: 53-year-old male with a past medical history of seizures on Keppra, reactive airway disease, type 2 diabetes, GERD, hypothyroidism, hypertension, who has a history of frequent falls, and frequent episodes of syncope, who is cared for by his girlfriend, and cannot live alone per girlfriend. Girlfriend states that he has not been on any medications for the last month secondary to a lack of funding and insurance complications. Additionally they are currently homeless and staying at the [facility]. Today the patient was doing well, however earlier in the morning he was walking and per family members he was being clumsy and ran into a pillar with his head. He developed a small goose egg which eventually resolved. He went out motorcycling with some friends, came home, and then this evening while going to the bathroom he syncopized and hit his head quite firmly on the door. For the 2 hours following that event he was a bit more confused and in and out of it compared to normal. Eventually EMS was called and the patient was brought to the ER for further assessment. When EMS arrived the patient was talking but slightly confused. He had a few shots of alcohol prior to EMSs arrival. He had been asking for this because of pain in his left ribs secondary to previous rib fractures a month ago. EMS stated that he appeared intoxicated, and then on the way over he fell asleep and became less responsive. He was arousable with noxious stimuli, but otherwise refused to interact with them anymore. Patient has no complaints at this time. He is not interacting with medical staff currently to add to history. History was gathered via his significant other and EMS. Related Data Home Medications ?Medication ?Instructions ?Recorded ?Confirmed Truetrack Lancets 11/01/17 04/15/24 albuterol sulfate 5 mg/mL(0.5 %) 2.5 mg inhalation Q4H PRN 11/01/17 04/15/24 solution for nebulization blood sugar diagnostic (Truetrack 11/01/17 04/15/24 Test strips) blood-glucose meter (Truetrack 11/01/17 04/15/24 Blood Glucose System kit) glucose 4 gram chewable tablet 5 gm PO TID PRN 11/01/17 04/15/24 insulin aspart U-100 100 unit/mL 20 sliding scale dose subcut 11/01/17 04/15/24 subcutaneous solution (Novolog DIRECTED U-100 Insulin aspart) levothyroxine 25 mcg tablet 25 mcg PO DAILY 11/01/17 04/15/24 (Synthroid) lisinopril 40 mg tablet 20 mg PO DAILY 11/01/17 04/15/24 aclidinium bromide 400 400 mcg inhalation Q12H PRN 02/14/18 04/15/24 mcg/actuation breath activated powder inhaler (Tudorza Pressair) allopurinol 300 mg tablet 100 mg PO BID 02/14/18 04/15/24 atorvastatin 80 mg tablet (Lipitor) 80 mg PO DAILY 11/08/18 04/15/24 bupropion HCl 300 mg 24 hr tablet, 300 mg PO QAM 11/08/18 04/15/24 extended release insulin glargine 100 unit/mL (3 10 unit subcut QPM 01/07/24 04/15/24 mL) subcutaneous pen (Basaglar KwikPen U-100 Insulin) baclofen 20 mg tablet 20 mg PO TID 04/15/24 04/15/24 levetiracetam 500 mg tablet 500 mg PO BID #60 tabs 04/15/24 (Keppra) lidocaine 5 % topical patch 1 patch topical DAILY #15 ea 04/15/24 (Lidoderm) metformin 500 mg tablet 500 mg PO BID 04/15/24 04/15/24 Previous Rx's ?Medication ?Instructions ?Recorded levetiracetam 500 mg tablet 500 mg PO BID #60 tabs 04/15/24 (Keppra) lidocaine 5 % topical patch 1 patch topical DAILY #15 ea 04/15/24 (Lidoderm) Allergies Allergy/AdvReac Type Severity Reaction Status Date / Time tapentadol HCl (From Nucynta) Allergy Severe DYSPNEA Unverified 04/15/24 14:03 naproxen (From Naprosyn) Allergy Intermediate RASH Unverified 04/15/24 14:03 varenicline tartrate (From Allergy Mild MOOD SWINGS Unverified 04/15/24 14:03 Chantix) SSRI Allergy Intermediate SEROTONIN Uncoded 04/15/24 14:03 SYNDROME General Stated Complaint: AMS/LOC ROQUE: 3 Review of Systems All systems reviewed & are unremarkable except as noted in HPI and below Exam Narrative Exam Narrative: 1.Const: Well-nourished, Well-developed, appearing stated age 2.Eyes: PERRL, no conjunctival injection, and symmetrical lids. 3.ENT: Atraumatic external nose and ears. Moist MM. Neck: Symmetric, trachea midline, No thyromegaly. There is no evidence of raccoon eyes, viera sign, CSF rhinorrhea, mastoid tenderness, cranial crepitus, hemotympanum, exophthalmos, or hyphema. Patient demonstrates intact dentition with no signs of tooth avulsion or fracture, no signs of jaw deformity, no evidence of a LeFort's fracture, with an intact palate, nose and orbital region. There is no evidence of a nasal septal hematoma. No proptosis. Jaw closes symmetrically. Airway is clear. 4.CVS: +S1/S2, No murmurs or gallops. Peripheral pulses 2+ and equal in all extremities. Brisk capillary refill in all extremities. 5.RESP: Unlabored respiratory effort. Clear to auscultation bilaterally. No wheezes rales or rhonchi 6.GI: Soft, Nontender/Nondistended, No hepatosplenomegaly. No guarding or rebound. 7.MSK: Normocephalic/Atraumatic, Extremities w/o deformity or ttp No cyanosis or clubbing, Normal movement of all extremities 8.Skin: Warm, Dry. No rashes or lesions. 9.Neuro: Patient moves all extremities, he is resting in bed but with sternal rub or loud auditory stimuli he will respond open his eyes look around and swear fuck you and then go back to sleep. Pupils are equal round and reactive. He does appear to have excellent principal system software engineer strength on the bed rails. No nuchal r igidity. No seizure-like movements. 10.Psych: (AAO) x1. Course Vital Signs Vital signs: Vital Signs Temperature 37.4 C 05/03/24 22:43 Pulse 83 05/03/24 22:43 Respiratory Rate 18 05/03/24 22:43 Blood Pressure 159/79 H 05/03/24 22:43 Pulse Oximetry 99 05/03/24 22:43 Temperature 37.4 C 05/03/24 22:43 Pulse 83 05/03/24 22:43 Respiratory Rate 18 05/03/24 22:57 Respiratory Effort Normal 05/03/24 22:57 Respiratory Depth Normal 05/03/24 22:57 Respiratory Pattern Normal 05/03/24 22:57 Blood Pressure 159/79 H 05/03/24 22:43 Blood Pressure Position Sitting 05/03/24 22:43 Pulse Oximetry 99 05/03/24 22:43 Oxygen Delivery Method Room Air 05/03/24 22:43 Oxygen Flow Rate 0 05/03/24 22:43 Lab/Test Results Lab/Test Results: Laboratory Tests Range/Units 05/03/24 22:39 WBC (4.4-10.8) 10^3/uL 10.19 RBC (4.36-5.78) 10^6/uL 4.41 Hgb (13.5-17.5) g/dL 13.0 L Hct (40.0-50.0) % 37.2 L MCV (80-95) fL 84 MCH (27.0-33.0) pg 29.5 MCHC (32.0-36.0) % 34.9 RDW (11.8-14.1) % 13.2 Plt Count (130-400) 10^3/uL 297 MPV (8.0-11.0) fL 9.1 Immature Gran % % 0.5 Neutrophils % % 46.3 Lymphocytes % % 42.9 Monocytes % % 5.9 Eosinophils % % 3.7 Basophils % % 0.7 Nucleated RBC % (0.0-0.3) % 0.0 Absolute Neutrophils (1.2-6.7) 10^3/uL 4.72 Absolute Lymphocytes (1.2-3.4) 10^3/uL 4.37 H Absolute Monocytes (0.1-0.8) 10^3/uL 0.60 Absolute Eosinophils (0.0-0.7) 10^3/uL 0.38 Absolute Basophils (0.0-0.2) 10^3/uL 0.07 VBG pH (7.31-7.41) 7.37 VBG pCO2 (41-51) mmHg 49 VBG pO2 mmHg 72 VBG HCO3 (23-28) mmol/L 29 H VBG Total CO2 (24-29) mmol/L 26 VBG O2 Saturation % 95 VBG Base Excess (-2-3) mmol/L 3 Medical Decision Making 53-year-old male with a past medical history of seizures on Keppra, reactive airway disease, type 2 diabetes, GERD, hypothyroidism, hypertension, who has a history of frequent falls, and frequent episodes of syncope, who is cared for by his girlfriend, and cannot live alone per girlfriend. Girlfriend states that he has not been on any medications for the last month secondary to a lack of funding and insurance complications. Additionally they are currently homeless and staying at the [facility]. Today the patient was doing well, however earlier in the morning he was walking and per family members he was being clumsy and ran into a pillar with his head. He developed a small goose egg which eventually resolved. He went out motorcycling with some friends, came home, and then this evening while going to the bathroom he syncopized and hit his head quite firmly on the door. For the 2 hours following that event he was a bit more confused and in and out of it compared to normal. Eventually EMS was called and the patient was brought to the ER for further assessment. When EMS arrived the patient was talking but slightly confused. He had a few shots of alcohol prior to EMSs arrival. He had been asking for this because of pain in his left ribs secondary to previous rib fractures a month ago. EMS stated that he appeared intoxicated, and then on the way over he fell asleep and became less responsive. He was arousable with noxious stimuli, but otherwise refused to interact with them anymore. Patient has no complaints at this time. He is not interacting with medical staff currently to add to history. History was gathered via his significant other and EMS. Physical exam demonstrates a male resting in bed, no signs of trauma for the head neck chest abdomen or pelvis. Lidoderm patches present on his left chest. He is resting in bed but with sternal rub or loud auditory stimuli he will respond open his eyes look around and swear fuck you and then go back to sleep. Pupils are equal round and reactive. He does appear to have excellent principal system software engineer strength on the bed rails. No nuchal rigidity. No seizure-like movements. No other focal deficits. Differential is broad, but includes subclinical seizures especially since he has not been able to be compliant with medications for the last month. Concussion secondary to the falls and trauma, intracranial bleed or hemorrhage. Cardiac dysrhythmia is of concern but it sounds like these episodes of passing out are quite known and chronic for the patient. Will gently rehydrate, evaluate for concerning etiologies, get a CT scan of the head neck and chest, check for electrolyte abnormalities, DKA, or other problems, monitor closely and reassess. Symptoms at this time appear inconsistent with meningitis. Alcohol intoxication is certainly high on the differential 1:05 AM On reassessment patient is doing much better. He appears to be back to his normal baseline self. He is asking nursing staff if he can go and fuck my girlfriend in the bathroom, to which we told him that this was not allowed in the emergency department. Laboratory workup has returned, no white count bandemia or left shift. VBG is normal, electrolytes normal, troponin is normal. Thyroid function normal, TSH is slightly elevated but free T4 is normal. Alcohol level is 183, COVID flu and RSV are negative. CT scan of the head neck is negative for acute process. No bleed or stroke. CT scan of the chest demonstrates no evidence of acute fracture, or other acute pathology. Patient feels well and is requesting to go home. I suspect patient's symptoms are combination of alcohol intoxication, potential mild concussion, and less likely mild seizure. Recommend avoidance of alcohol, recommend that the patient continue his home antiepileptics. Otherwise patient and family feel well and would like to go home. Patient will be discharged home. Discussed red flags for which to return. No evidence at this time of acute life-threatening dysrhythmia, significant electrolyte abnormality, stroke, or other acute life- threatening etiology. I have extensively reviewed the treatment plan and discharge instructions with the patient and their family. I have addressed all patient concerns at this time. The patient and family was made aware of what symptoms to monitor for that would warrant a return to the emergency department. Discussed the plan with the patient and family, they demonstrate verbal understanding and agreement with our assessment and plan at this time. The documentation in this chart was dictated using Vinobo dictation software. Please excuse any dictation errors. FINDINGS: Brain: No intracranial hemorrhage. No cerebral edema. No large territory acute CVA. No mass or mass effect. Cerebral ventricles: No ventriculomegaly. Paranasal sinuses: Paranasal sinuses without air-fluid levels. Mastoid air cells: Mastoid air cells are clear. Bones: No skull fracture. Soft tissues: Scalp soft tissues are unremarkable. IMPRESSION: 1. No intracranial hemorrhage. 2. Unremarkable noncontrast CT head. FINDINGS: Bones: No acute fracture or dislocation. Previous anterior and disc space fusions of C5-C6 and C6- C7. Moderate degenerative disc disease at C4-C5 and C7-T1. Multilevel llxy-bk-[id number] facet and uncovertebral joint degenerative change. Lungs: Lung apices are normal. Soft tissues: Unremarkable. IMPRESSION: 1. No acute findings. 2. No cervical spine fracture or dislocation. 3. Previous anterior and disc space fusion of C5-C6 and C6-C7. Thank you for allowing us to participate in the care of your patient. Dictated and Authenticated by: Wayne Abarca MD 05/04/2024 12:23 AM Eastern Time ([place] & [place]) FINDINGS: Thymus: A normal amount of residual thymus tissue is present in the anterior/superior mediastinum. Lungs: No the evidence of pulmonary contusion. There is no evidence of focal pulmonary consolidation. No evidence of pulmonary parenchymal inflammatory changes. There is no evidence of pulmonary masses. Pleural spaces: There is no evidence of pneumothorax. There are no pleural effusions present. Heart: The cardiac structures are normal. Coronary arteries: There is moderate atherosclerotic calcification of the coronary arteries. Esophagus: Fluid is seen within the esophagus consistent with gastroesophageal reflux. Mediastinal space: The mediastinal structures are normal, no evidence of mediastinal hematoma. Lymph nodes: There is no evidence of lymphadenopathy. Vasculature: The pulmonary arteries are normal in caliber. No evidence of acute pulmonary embolism. The aorta and great vessels appear normal. No evidence of aortic dis section. No evidence of contrast extravasation to suggest major vascular injury Gallbladder and biliary ducts: There are calcified gallstones present within the gallbladder lumen. There is no wall thickening or pericholecystic fluid. Findings consistant with cholelitiasis without cholecystitis. There is mild intrahepatic biliary dilation. Stomach: The stomach is distended with fluid and a small amount a gas. Bones/joints: Anterior cervical fusion changes present at the lower cervical spine. The spine, sternum, ribs, and pectoral girdles show no evidence of acute abnormality. Soft tissues: There are no soft tissue masses or fluid collections. IMPRESSION: 1. No evidence of acute trauma to the thorax. 2. No evidence of pulmonary embolism. 3. No active cardiopulmonary disease. 4. Findings consistant with cholelitiasis without cholecystitis. 5. There is mild intrahepatic biliary dilation. 6. The stomach is distended with fluid and a small amount a gas. 7. Fluid is seen within the esophagus consistent with gastroesophageal reflux. Quality:[facility] Health Related Social Needs: No Data to Display [facility] All Active Problems (Updated 05/04/24 @ 01:09 by Ryan Banda DO) Syncope (Chronic) Alcohol intoxication (Acute) Concussion (Acute) Seizure (Acute) Contusion of rib on left side (Acute) Ulnar neuropathy of right upper extremity (Acute) Carpal tunnel syndrome on both sides (Acute) Medical History Pes planovalgus Rotator cuff syndrome Intermittent claudication Callus Asthma termite helper (current) use of insulin Controlled substance agreement signed Long-term use of high-risk medication Tobacco dependence Chronic pain syndrome Cervical radiculopathy Anxiety Depression Gout Leg cramps Insomnia COPD (chronic obstructive pulmonary disease) GERD (gastroesophageal reflux disease) Hypothyroidism Mixed hyperlipidemia Diabetes Benign essential hypertension Surgical History History of wisdom tooth extraction Family History Father No problems noted. Mother Cancer Brother HIV (human immunodeficiency virus infection) Social History Smoking/Tobacco Use Status: Current every day Tobacco Type: cigarettes Smoking risk assessment performed?: Yes Alcohol Intake: former Drug use: Occasionally Substance use type: marijuana Household members: spouse Housing: house current occupation: shipping and recieving at the [employer] What type of physical activity do you participate in: walking and additional Details: yard work, splitting wood
[2024-05-03 23:06] LABS: PTT Activated 24.9 sec (23.6-32.8); Prothrombin Time 10.1 sec (9.1-11.1)
[2024-05-03 23:19] LABS: ALT 17 U/L (16-63); AST 11 U/L (15-37); Alkaline Phosphatase 95 U/L (46-116); Anion Gap 10.6 mmol/L (3-11); BUN 13 mg/dL (7-18); Bilirubin, Total 0.37 mg/dL (0.2-1.0); CO2 29.4 mmol/L (21.0-32.0); Calcium 8.8 mg/dL (8.5-10.1); Chloride 105 mmol/L (98-107); ETHANOL BLOOD 183.9 mg/dL (<10); Estimated GFR 91.12 (mL/min/1.73m2); Glucose 128 mg/dL (74-106); Magnesium 2.1 mg/dL (1.8-2.4); Potassium 3.4 mmol/L (3.5-5.1); Sodium 145 mmol/L (136-145); TSH (W/Ref FT4) 13.62 uIU/mL (0.36-3.74); Total Protein 7.5 g/dL (6.4-8.2); Troponin I < 50 ng/L (< or =60)
[2024-05-03] MEDS: Normal Saline - Diluent 50 ML VIAL IJ (23:22)
[2024-05-03] MEDS: Omnipaque 350 MG/ML 100 ML BTL IJ (23:23)
[2024-05-03 23:36] LABS: FREE T4 0.96 ng/dL (0.76-1.46)
[2024-05-03 23:38] LABS: COVID-19 PCR Negative (Negative); Influenza A PCR Negative (Negative); Influenza B PCR Negative (Negative); RSV PCR Negative (Negative)
[2024-05-03 23:41] LABS: Source Nasopharynx
[2024-05-03] MEDS: Lactated Ringers 1,000 ML 1000 ML IV (23:46)
--- NOTE | 2024-05-04 00:23 | DI.VRAD_ITS ---
PROCEDURE INFORMATION: Exam: CT Head Without Contrast Exam date and time: 05/03/2024 11:17 PM Age: 53 years old Clinical indication: Injury or trauma; Other: Fall, loc, hit head, seizure? TECHNIQUE: Imaging protocol: Computed tomography of the head without contrast. COMPARISON: CT HEAD WO 04/15/2024 3:05 PM FINDINGS: Brain: No intracranial hemorrhage. No cerebral edema. No large territory acute CVA. No mass or mass effect. Cerebral ventricles: No ventriculomegaly. Paranasal sinuses: Paranasal sinuses without air-fluid levels. Mastoid air cells: Mastoid air cells are clear. Bones: No skull fracture. Soft tissues: Scalp soft tissues are unremarkable. IMPRESSION: 1. No intracranial hemorrhage. 2. Unremarkable noncontrast CT head. PROCEDURE INFORMATION: Exam: CT Cervical Spine Without Contrast Exam date and time: 05/03/2024 11:17 PM Age: 53 years old Clinical indication: Injury or trauma; Other: Fall, loc, hit head, seizure? TECHNIQUE: Imaging protocol: Computed tomography of the cervical spine without contrast. COMPARISON: CT CHEST WO 04/15/2024 3:12 PM FINDINGS: Bones: No acute fracture or dislocation. Previous anterior and disc space fusions of C5-C6 and C6-C7. Moderate degenerative disc disease at C4-C5 and C7-T1. Multilevel gnlz-gs-qayxiovr facet and uncovertebral joint degenerative change. Lungs: Lung apices are normal. Soft tissues: Unremarkable. IMPRESSION: 1. No acute findings. 2. No cervical spine fracture or dislocation. 3. Previous anterior and disc space fusion of C5-C6 and C6-C7. Dictated and Authenticated by: Wayne Abarca MD. Ordering:JESSE Davis MD
--- NOTE | 2024-05-04 00:38 | DI.VRAD_ITS ---
PROCEDURE INFORMATION: Exam: CT Chest With Contrast; Diagnostic Exam date and time: 05/03/2024 11:26 PM Age: 53 years old Clinical indication: Injury or trauma; Blunt trauma (contusions or hematomas); Injury details: Fall, hit left chest, eval for trauma TECHNIQUE: Imaging protocol: Diagnostic computed tomography of the chest with contrast. 3D rendering (Not supervised by radiologist): MIP and/or 3D reconstructed images were created by the technologist. Contrast material: OMNI 350; Contrast volume: 70 ml; Contrast route: INTRAVENOUS (IV); COMPARISON: CT CHEST WO 04/15/2024 3:12 PM FINDINGS: Thymus: A normal amount of residual thymus tissue is present in the anterior/superior mediastinum. Lungs: No the evidence of pulmonary contusion. There is no evidence of focal pulmonary consolidation. No evidence of pulmonary parenchymal inflammatory changes. There is no evidence of pulmonary masses. Pleural spaces: There is no evidence of pneumothorax. There are no pleural effusions present. Heart: The cardiac structures are normal. Coronary arteries: There is moderate atherosclerotic calcification of the coronary arteries. Esophagus: Fluid is seen within the esophagus consistent with gastroesophageal reflux. Mediastinal space: The mediastinal structures are normal, no evidence of mediastinal hematoma. Lymph nodes: There is no evidence of lymphadenopathy. Vasculature: The pulmonary arteries are normal in caliber. No evidence of acute pulmonary embolism. The aorta and great vessels appear normal. No evidence of aortic dissection. No evidence of contrast extravasation to suggest major vascular injury. Gallbladder and biliary ducts: There are calcified gallstones present within the gallbladder lumen. There is no wall thickening or pericholecystic fluid. Findings consistant with cholelitiasis without cholecystitis. There is mild intrahepatic biliary dilation. Stomach: The stomach is distended with fluid and a small amount a gas. Bones/joints: Anterior cervical fusion changes present at the lower cervical spine. The spine, sternum, ribs, and pectoral girdles show no evidence of acute abnormality. Soft tissues: There are no soft tissue masses or fluid collections. IMPRESSION: 1. No evidence of acute trauma to the thorax. 2. No evidence of pulmonary embolism. 3. No active cardiopulmonary disease. 4. Findings consistant with cholelitiasis without cholecystitis. 5. There is mild intrahepatic biliary dilation. 6. The stomach is distended with fluid and a small amount a gas. 7. Fluid is seen within the esophagus consistent with gastroesophageal reflux. Dictated and Authenticated by: Wayne Hearn MD. Ordering:JESSE Davis MD
== END 2024-05-04 01:42 | disposition home or self-care (01) ==
PROVIDERS: Emergency Provider Student in an Organized Health Care Education/Training Program; PCP Student in an Organized Health Care Education/Training Program
DX: S06.0X0A Concussion without loss of consciousness, initial encounter (principal); R94.31 Abnormal electrocardiogram [ECG] [EKG]; I10 Essential (primary) hypertension; E78.5 Hyperlipidemia, unspecified; E03.9 Hypothyroidism, unspecified; E11.9 Type 2 diabetes mellitus without complications; Z79.84 Long term (current) use of oral hypoglycemic drugs; Z79.4 Long term (current) use of insulin; Z59.00 Homelessness unspecified; Y90.6 Blood alcohol level of 120-199 mg/100 ml; F10.120 Alcohol abuse with intoxication, uncomplicated; W18.39XA Other fall on same level, initial encounter
CPT/HCPCS: 80053; 82805; 82962; 87637; 93005; 96361; 96374; 99285; 70450; 71260; 72125; 80320; 81003; 83735; 84439; 84443; 84484; 85025; 85610; 85730; 93010; J1953; J3490

== ENCOUNTER 2024-05-09 14:57 | Outpatient (REF) | payer MEDICARE, SELFPAY ==
[2024-05-09 16:55] LABS: COMMENT (LAB VIEW ONLY) 83.85 mg/dL; Microalb ug/mg Crea 8.8 ug/mg Cr
== END 2024-05-09 14:58 | disposition home or self-care (01) ==
LOC: NCHCN 14:57
PROVIDERS: PCP Student in an Organized Health Care Education/Training Program; Visit Provider Student in an Organized Health Care Education/Training Program
DX: E11.9 Type 2 diabetes mellitus without complications (principal)
CPT/HCPCS: 82043; 82570

== ENCOUNTER 2024-05-31 08:35 | Outpatient (CLI) | payer MEDICARE, MEDICAID, SELFPAY ==
--- NOTE | 2024-05-31 08:30 | RT.EKG_ITS ---
APPROVED REPORT Exam: Resting ECG Reason for Exam: High Risk Medication Use Patient Location: O HR:60 bpm ECG Measurements Heart Rate 60 AXIS MT 196 P 69 QRSd 85 QRS 62 QT 440 T 54 QTc 440 Conclusion Sinus rhythm...normal P axis, V-rate 50- 99 Normal Electrocardiogram
== END 2024-05-31 08:36 | disposition home or self-care (01) ==
LOC: CARDOPNVT 08:35
PROVIDERS: PCP Student in an Organized Health Care Education/Training Program; Visit Provider Nurse Practitioner Family
DX: Z79.899 Other long term (current) drug therapy (principal)
CPT/HCPCS: 93005; 93010

== ENCOUNTER 2024-06-09 15:40 | Emergency (ER) | payer MEDICARE, MEDICAID, SELFPAY ==
[2024-06-09 15:43] VITALS: BP 116/58; PULSE 74; RESP 14; TEMP 36.9; O2SAT 98
--- NOTE | 2024-06-09 16:00 | DI.RAD_ITS ---
Exam(s) XR KNEE LT 4V AP,LAT,PAMELA,PAT EXAM: XR KNEE LT 4V AP,LAT,PAMELA,PAT CLINICAL HISTORY: sudden onset R knee pain. TECHNIQUE: 2D digital imaging was performed. COMPARISON: No exams were available for comparison FINDINGS: Four views. No evidence of acute fracture or joint effusion. Bone density normal. No osseous lesions. No degen erative changes. No joint space narrowing. No osteochondral defects. IMPRESSION: No significant osseous findings in the left knee. DATA REPOSITORY: RADIATION DOSE DELIVERED:
--- NOTE | 2024-06-09 16:12 | W.ED.GENAD ---
Discharge Plan Disposition Patient Disposition: Home Discharge Details Clinical Impression: Acute pain of left knee Primary Care Provider: Brad Martino ED Provider: Lori Cabrera Home Meds and New Rx's Prescriptions: No Action atorvastatin [Lipitor] 80 mg tablet 80 mg PO DAILY bupropion HCl 300 mg tablet extended release 24 hr 300 mg PO QAM Patient Comments: 1/2 tab (DME) Truetrack Test 1 EACH strip 1 ea Miscellaneous BID levothyroxine [Synthroid] 25 MCG tablet 25 mcg PO DAILY (DME) blood-glucose meter [Truetrack Blood Glucose System] 1 EACH kit 1 ea Miscellaneous BID glucose 4 GM tablet,chewable 5 gm PO TID PRN albuterol sulfate 5 MG/1 ML solution 2.5 mg Inhalation Q4H PRN (DME) TRUETRACK LANCETS 0 .ROUTE .MEDSUPPLY allopurinol 300 MG tablet 100 mg PO BID metformin 500 mg tablet 500 mg PO BID levetiracetam [Keppra] 500 mg tablet 500 mg PO BID Qty: 60 0RF duloxetine 40 mg PO DAILY Discharge Instructions Additional Instructions: Please follow-up with an [facility] orthopedics in the next 2 weeks for evaluation and management of your knee pain. I encourage you to continue using Tylenol ibuprofen at home as needed for discomfort. You may use the knee immobilizer as needed to maintain comfort. Weight-bear as tolerated. Return to emergency care if you notice any signs of infection or neurovascular compromise such as redness, swelling, warmth, numbness/tingling, paleness to the foot/lower leg, coolness to lower extremity; or if you are very worried and need to be rechecked again immediately Referrals: [facility] [Provider Group] Discharge Data Discharge Date/Time-TO BE ENTERED AT DEPARTURE: 06/09/24 17:38 HPI General Date/Time Provider Initiated Documentation: 06/09/24 15:44. HPI Narrative: Ashkan is a 54-year-old male who presents to the emergency department today for evaluation of sudden onset of left knee pain. He reports that he was walking, concentrating on moving stuff when all of a sudden he experienced left knee pain. He has pain with any movement of his knee, says it is most comfortable in flexion. He noted some swelling to the medial aspect of his knee as well. Denies hearing any snapping/cracking/popping sensation. No distal numbness/tingling. Says he has recently been in good health, no fever/chills, bleeding, general malaise. He does report that he has knee issues, has likely injured this knee in the past. Denies history of IVDU or regular alcohol use. Does not take any pain medications on regular basis. He does have history of diabetes, takes oral medications for this. Physical exam remarkable for significant tenderness with palpation all over knee. Mild swelling noted to the medial aspect of his left knee. No surrounding erythema/warmth. Distal pulses intact. Calf muscle is soft, no edema. He does have pain with straightening his leg. He is able to internally and externally rotate his hip without difficulty. Patient does appear comfortable with any movement of his knee DDx includes but is not limited to: Ligamentous tear/strain, osteoarthritis, neuropathy due to diabetes, fracture. No red flags concerning for septic joint at this time based on mechanism of injury and physical exam. History of sudden onset of pain with activity less concerning for gout. I independently interpreted the following tests: Left knee x-ray, no fracture or dislocation noted. No acute abnormalities noted by radiologist. While in the emergency department Ashkan received IM Toradol for discomfort with good improvement of symptoms, he is now able to fully extend the leg without difficulty. Unclear etiology of knee pain, likely meniscal or ligamentous injury. As patient has a history of knee pain, he is requesting knee immobilizer for comfort, especially when he sleeps. Knee immobilizer provided. Recommend use of Tylenol/ibuprofen as needed for discomfort, rest as needed, and follow-up with orthopedics for further evaluation and management. Reviewed red flags indicating need for return to emergency care. He voices agreement with plan of care. Related Data Home Medications ?Medication ?Instructions ?Recorded ?Confirmed Truetrack Lancets 11/01/17 06/09/24 albuterol sulfate 5 mg/mL(0.5 %) 2.5 mg inhalation Q4H PRN 11/01/17 06/09/24 solution for nebulization blood sugar diagnostic (Truetrack 11/01/17 06/09/24 Test strips) blood-glucose meter (Truetrack 11/01/17 06/09/24 Blood Glucose System kit) glucose 4 gram chewable tablet 5 gm PO TID PRN 11/01/17 06/09/24 levothyroxine 25 mcg tablet 25 mcg PO DAILY 11/01/17 06/09/24 (Synthroid) allopurinol 300 mg tablet 100 mg PO BID 02/14/18 06/09/24 atorvastatin 80 mg tablet (Lipitor) 80 mg PO DAILY 11/08/18 06/09/24 bupropion HCl 300 mg 24 hr tablet, 300 mg PO QAM 11/08/18 06/09/24 extended release levetiracetam 500 mg tablet 500 mg PO BID #60 tabs 04/15/24 06/09/24 (Keppra) metformin 500 mg tablet 500 mg PO BID 04/15/24 06/09/24 duloxetine 40 mg PO DAILY 06/09/24 06/09/24 Previous Rx's ?Medication ?Instructions ?Recorded levetiracetam 500 mg tablet 500 mg PO BID #60 tabs 04/15/24 (Keppra) Allergies Allergy/AdvReac Type Severity Reaction Status Date / Time tapentadol HCl (From Nucynta) Allergy Severe DYSPNEA Unverified 06/09/24 15:46 naproxen (From Naprosyn) Allergy Intermediate RASH Unverified 06/09/24 15:46 varenicline tartrate (From Allergy Mild MOOD SWINGS Unverified 06/09/24 15:46 Chantix) SSRI Allergy Intermediate SEROTONIN Uncoded 06/09/24 15:46 SYNDROME General Stated Complaint: Orthopedic ROQUE: 4 Review of Systems Narrative: see HPI Exam Const General: cooperative and well developed Nutritional Appearance: thin Orientation: alert and oriented x3 Resp Effort & Inspection: normal respiratory effort and able to speak in complete sentences Extrem Left lower extremity: normal capillary refill and knee (mild swelling, diffusely tender to palpation) Details: no abrasions, no lacerations, no ecchymosis, no crepitus, no foreign bodies, no penetrating wound, no deformity and no unusual warmth Course Vital Signs Vital signs: Vital Signs Temperature 36.9 C 06/09/24 15:43 Pulse 74 06/09/24 15:43 Respiratory Rate 14 06/09/24 15:43 Blood Pressure 116/58 L 06/09/24 15:43 Pulse Oximetry 98 06/09/24 15:43 Temperature 36.9 C 06/09/24 15:43 Temperature Source Oral 06/09/24 15:43 Pulse 74 06/09/24 15:43 Respiratory Rate 14 06/09/24 15:43 Blood Pressure 116/58 L 06/09/24 15:43 Blood Pressure Position Sitting 06/09/24 15:43 Pulse Oximetry 98 06/09/24 15:43 Oxygen Delivery Method Room Air 06/09/24 15:43 Oxygen Flow Rate 0 06/09/24 15:43 Pain Level 10 06/09/24 15:43 Medical Decision Making Imaging Data Radiologic Study: Radiologist's impression: Exam(s) XR KNEE LT 4V AP,LAT,PAMELA,PAT EXAM: XR KNEE LT 4V AP,LAT,PAMELA,PAT CLINICAL HISTORY: sudden onset R knee pain. TECHNIQUE: 2D digital imaging was performed. COMPARISON: No exams were available for comparison FINDINGS: Four views. No evidence of acute fracture or joint effusion. Bone density normal. No osseous lesions. No degenerative changes. No joint space narrowing. No osteochondral defects. IMPRESSION: No significant osseous findings in the left knee. 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
[2024-06-09] MEDS: Ketorolac 30 MG/ML VIAL IM (16:20)
[2024-06-09 17:12] VITALS: BP 116/58; PULSE 74; RESP 14; TEMP 36.9; O2SAT 98
== END 2024-06-09 17:38 | disposition home or self-care (01) ==
PROVIDERS: Emergency Provider Nurse Practitioner Family; PCP Student in an Organized Health Care Education/Training Program
DX: M25.562 Pain in left knee (principal); J45.909 Unspecified asthma, uncomplicated; J44.9 Chronic obstructive pulmonary disease, unspecified; E03.9 Hypothyroidism, unspecified; E78.2 Mixed hyperlipidemia; I10 Essential (primary) hypertension; E11.9 Type 2 diabetes mellitus without complications; K21.9 Gastro-esophageal reflux disease without esophagitis; Z79.84 Long term (current) use of oral hypoglycemic drugs; Z79.899 Other long term (current) drug therapy
CPT/HCPCS: 96372; 99284; 73564; J1885

== ENCOUNTER 2024-08-09 12:50 | Outpatient (REF) | payer MEDICARE, SELFPAY ==
[2024-08-09 14:41] LABS: ALT 22 U/L (16-63); AST 14 U/L (15-37); Albumin 4.3 g/dL (3.4-5.0); Alkaline Phosphatase 90 U/L (46-116); Anion Gap 10.6 mmol/L (3-11); BUN 22 mg/dL (7-18); CO2 28.4 mmol/L (21.0-32.0); Calcium 9.4 mg/dL (8.5-10.1); Calculated LDL 53 mg/dL (<100); Chloride 104 mmol/L (98-107); Cholesterol 110 mg/dL (<200); Estimated GFR 90.56 (mL/min/1.73m2); Glucose 130 mg/dL (74-106); HDL Cholesterol 42 mg/dL (40-60); Potassium 4.2 mmol/L (3.5-5.1); Sodium 143 mmol/L (136-145); Total Protein 7.7 g/dL (6.4-8.2); Triglyceride 77 mg/dL (<150)
== END 2024-08-09 12:51 | disposition home or self-care (01) ==
LOC: NCHCN 12:50
PROVIDERS: PCP Nurse Practitioner Psychiatric/Mental Health; Visit Provider Student in an Organized Health Care Education/Training Program
DX: E11.9 Type 2 diabetes mellitus without complications (principal)
CPT/HCPCS: 80053; 80061

== ENCOUNTER 2024-11-29 21:48 | Emergency (ER) | payer MEDICARE, MEDICAID, SELFPAY ==
[2024-11-29] VITALS (13 sets, daily range): BP systolic 89–112; BP diastolic 53–67; PULSE 60–76; RESP 14–20; TEMP 37.3; O2SAT 92–94
--- NOTE | 2024-11-29 22:00 | DI.RAD_ITS ---
Exam(s) XR CHEST 2V PA LATERAL EXAM: XR CHEST 2V PA LATERAL CLINICAL HISTORY: fever, cough x 1 month TECHNIQUE: 2D digital imaging was performed of the chest. Two images were obtained. PA and lateral views were obtained. COMPARISON: CR XR CHEST 2V PA LATERAL from 04/15/2024 FINDINGS: MEDIASTINUM: Normal. HEART: Normal. PULMONARY VASCULATURE: Normal. LUNGS: There is an opacity seen in the left lower lobe. The right lung is clear. PLEURAL SPACE: No pleural effusion or pneumothorax. BONE:Within normal limits for the patient's age. OTHER FINDINGS:Normal. IMPRESSION: Left lower lobe infiltrate suspicious for pneumonia. DATA REPOSITORY: RADIATION DOSE DELIVERED:
--- NOTE | 2024-11-29 22:00 | RT.EKG_ITS ---
APPROVED REPORT Exam: Resting ECG Reason for Exam: short of breath Patient Location: E HR:61 bpm ECG Measurements Heart Rate 61 AXIS CO 176 P 74 QRSd 89 QRS 79 QT 583 T 97 QTc 587 Conclusion Sinus rhythm...normal P axis, V-rate 60- 99 Prolonged QT interval...QTc >500mS Prolonged QT, otherwise appropriate intervals No ST segment or T wave abnormalities to suggest occlusive [place]
--- NOTE | 2024-11-29 22:14 | W.ED.GENAD ---
Discharge Plan Disposition Patient Disposition: Home Condition: Good Discharge Details Clinical Impression: Influenza A, Asthma Primary Care Provider: Paulina Lang ED Provider: Shala Rodriguez Home Meds and New Rx's Prescriptions: New amoxicillin-pot clavulanate 875-125 mg tablet 1 tab PO BID Qty: 18 0RF Continued atorvastatin [Lipitor] 80 mg tablet 80 mg PO DAILY levothyroxine [Synthroid] 25 MCG tablet 25 mcg PO DAILY albuterol sulfate 5 MG/1 ML solution 2.5 mg Inhalation Q4H PRN allopurinol 300 MG tablet 100 mg PO BID metformin 500 mg tablet 500 mg PO BID levetiracetam [Keppra] 500 mg tablet 500 mg PO BID Qty: 60 0RF duloxetine 40 mg PO DAILY Discontinued bupropion HCl 300 mg tablet extended release 24 hr 300 mg PO QAM Patient Comments: 1/2 tab glucose 4 GM tablet,chewable 5 gm PO TID PRN sildenafil 50 mg tablet 50 mg PO DAILY PRN Rx Instructions: administer 30 minutes to 4 hours before activity pantoprazole 40 mg tablet,delayed release (DR/EC) 40 mg PO DAILY No Action (DME) Truetrack Test 1 EACH strip 1 ea Miscellaneous BID (DME) blood-glucose meter [Truetrack Blood Glucose System] 1 EACH kit 1 ea Miscellaneous BID (DME) TRUETRACK LANCETS 0 .ROUTE .MEDSUPPLY Discharge Instructions Instructions: Pneumonia, Adult ED, Flu, Adult ED Additional Instructions: Use inhaler as needed up to every 4 hours. Tylenol and ibuprofen over the counter; follow the directions on the bottle. Antibiotic twice a day for the next 10 days. Call your primary care doctor in the morning to schedule an appointment for within the next 72 hours to followup on your visit today. At that visit discuss that your EKG showed some questionable prolonged QT interval; they may wish to repeat this. Return to the emergency department for new or worsening symptoms including difficultly breathing, inability to keep down fluids, chest pain, lightheadedness, passing out, or if you have any other concerns. Referrals: Paulina Lang DNP [Primary Care Provider] - [facility] General Mode of arrival: ambulatory. Date/Time Provider Initiated Documentation: 11/29/24 21:49. Limitations to Documentation: no limitations. Information obtained by: patient. HPI Narrative: 54yo M with hx hypothyroid, T2DM, HLD, seizures, asthma, COPD, presenting for 5-6 weeks of URI symptoms. Has had persistent cough and nasal congestion over this period of time- seems to get a better and then gets worse again. Also having intermittent nausea and vomiting, non-bloody non-bilious. No diarrhea. Greatly diminished appetite, keeping up with fluids okay. Diffuse body aches. Fever yesterday to 101F which is new. Breathing feels 'not great', some chest tightness which is constant and has been present for days. Used to have a nebulizer at home but it is broken, currently does not have any breathing treatments/inhalers/etc. Otherwise in his usual state of health with no rash, abdominal pain, lightheadedness, or other concerns. Related Data Home Medications ?Medication ?Instructions ?Recorded ?Confirmed Truetrack Lancets 11/01/17 06/09/24 albuterol sulfate 5 mg/mL(0.5 %) 2.5 mg inhalation Q4H PRN 11/01/17 11/29/24 solution for nebulization blood sugar diagnostic (Truetrack 11/01/17 06/09/24 Test strips) blood-glucose meter (Truetrack 11/01/17 06/09/24 Blood Glucose System kit) levothyroxine 25 mcg tablet 25 mcg PO DAILY 11/01/17 11/29/24 (Synthroid) allopurinol 300 mg tablet 100 mg PO BID 02/14/18 11/29/24 atorvastatin 80 mg tablet (Lipitor) 80 mg PO DAILY 11/08/18 11/29/24 levetiracetam 500 mg tablet 500 mg PO BID #60 tabs 04/15/24 11/29/24 (Keppra) metformin 500 mg tablet 500 mg PO BID 04/15/24 11/29/24 duloxetine 40 mg PO DAILY 06/09/24 11/29/24 amoxicillin 875 mg-potassium 1 tab PO BID #18 tabs 11/30/24 clavulanate 125 mg tablet Previous Rx's ?Medication ?Instructions ?Recorded levetiracetam 500 mg tablet 500 mg PO BID #60 tabs 04/15/24 (Keppra) amoxicillin 875 mg-potassium 1 tab PO BID #18 tabs 11/30/24 clavulanate 125 mg tablet Allergies Allergy/AdvReac Type Severity Reaction Status Date / Time tapentadol HCl (From Nucynta) Allergy Severe DYSPNEA Verified 11/29/24 22:00 naproxen (From Naprosyn) Allergy Intermediate RASH Verified 11/29/24 22:00 varenicline tartrate (From Allergy Mild MOOD SWINGS Verified 11/29/24 22:00 Chantix) SSRI Allergy Intermediate SEROTONIN Uncoded 11/29/24 22:00 SYNDROME General Stated Complaint: RespSymp ROQUE: 3 Review of Systems Narrative: see HPI Exam Narrative Exam Narrative: General: Alert, non-toxic, in no acute distress. Head: Normocephalic, atraumatic Neck: Trachea midline, ?Neck supple. ENT: ?MMM.? No oropharygeal lesions or exudate. Cardiac: ?RRR, no murmurs appreciated Resp: No respiratory distress. Slight wheeze diffusely. Abd: ?Soft, non-distended, nontender Extremities: ?No deformities.? No peripheral edema. Neurologic: GCS 15. ? Moves all extremities freely against gravity Course Vital Signs Vital signs: Vital Signs Temperature 37.3 C 11/29/24 21:51 Pulse 76 11/29/24 21:51 Respiratory Rate 20 11/29/24 21:51 Blood Pressure 89/66 L 11/29/24 21:51 Pulse Oximetry 94 11/29/24 21:51 Temperature 37.3 C 11/29/24 21:55 Temperature Source Oral 11/29/24 21:55 Pulse 76 11/29/24 21:55 Respiratory Rate 16 11/29/24 21:55 Respiratory Effort Short of Breath 11/29/24 21:55 Blood Pressure 89/66 L 11/29/24 21:55 Blood Pressure Position Sitting 11/29/24 21:51 Pulse Oximetry 94 11/29/24 21:55 Oxygen Delivery Method Room Air 11/29/24 21:55 Oxygen Flow Rate 0 11/29/24 21:51 Pain Level 9 11/29/24 21:55 Comment when coughing 11/29/24 21:55 Medical Decision Making 54yo M with hx hypothyroid, T2DM, HLD, seizures, asthma, COPD, presenting for 5-6 weeks of URI symptoms as well as intermittent nausea and vomiting, mild chest tightness, yesterday with fever to 101F. Borderline low blood pressure on arrival (89/66) with good MAP. Slight diffuse wheezing on exam with no increased work of breathing. Plan for albuterol, small (500cc) IVFB while awaiting results of workup. -EKG NSR, no ST segment or T wave abnormalities to suggest occlusive [place]. Flat T waves, difficult to truly appreciate QT interval however does appear prolonged in V3 & V6, ~ 560 by my calculation. Most recent prior EKG here with no QT prolongation. Pt is on keppra and has been for quite some time, no other QT prolonging meds. Will give oral magnesium while chemistry is pending. He has not had any episodes of palpitations or sudden presyncope or syncope (does feel lightheaded after coughing spells). -CXR independently reviewed; no clear focal pneumonia or pneumothorax on my view, radiology read with LLL pneumonia. -Respiratory viral swab + for influenza A. -Labs reviewed as below, CBC reassuring with no leukocytosis or leukopenia, CMP with no actionable abnormalities, Mg borderline low at 1.7, BNP not suggestive of heart failure, troponin negative in the in the setting of days of symptoms (would not further pursue ACS), TSH elevated with normal T4. -Repeat EKG again with flat T waves and difficult to appreciate QT intervals only reliably identifiable in V2 and ~440 by my calculation. On reassessment his vital signs are normal, he remains non-toxic appearing and in no respiratory distress, and he is requesting discharge home. It is unlikely his QT is truly prolonged- would not advise holding keppra or admission for telemetry monitoring at this time. Given Augmentin here and discharged on 10 day course for pneumonia. Advised close PCP followup. Discharged home; discharge instructions and strict return precautions were reviewed with patient and family who verbalized understanding. All questions were answered and they are in full agreement with the plan. Lab Data Lab results reviewed: Yes I reviewed the patient's lab results. Labs: Laboratory Tests Range/Units 11/29/24 11/29/24 11/29/24 21:54 22:42 22:42 WBC (4.4-10.8) 10^3/uL 9.96 RBC (4.36-5.78) 10^6/uL 3.79 L Hgb (13.5-17.5) g/dL 11.6 L Hct (40.0-50.0) % 33.6 L MCV (80-95) fL 89 MCH (27.0-33.0) pg 30.6 MCHC (32.0-36.0) % 34.5 RDW (11.8-14.1) % 12.8 Plt Count (130-400) 10^3/uL 235 MPV (8.0-11.0) fL 8.9 Immature Gran % % 0.5 Neutrophils % % 72.8 Lymphocytes % % 13.0 Monocytes % % 13.0 Eosinophils % % 0.3 Basophils % % 0.4 Nucleated RBC % (0.0-0.3) % 0.0 Absolute Neutrophils (1.2-6.7) 10^3/uL 7.26 H Absolute Lymphocytes (1.2-3.4) 10^3/uL 1.29 Absolute Monocytes (0.1-0.8) 10^3/uL 1.29 H Absolute Eosinophils (0.0-0.7) 10^3/uL 0.03 Absolute Basophils (0.0-0.2) 10^3/uL 0.04 Sodium (136-145) mmol/L 133 L Potassium (3.5-5.1) mmol/L 3.6 Chloride (98-107) mmol/L 97 L Carbon Dioxide (21.0-32.0) mmol/L 30.7 Anion Gap (3-11) mmol/L 5.3 BUN (7-18) mg/dL 20 H Creatinine (0.70-1.30) mg/dL 1.0 Est GFR (CKD-EPI 2020) (mL/min/1.73m2) 90.56 Glucose (74-106) mg/dL 108 H Calcium (8.5-10.1) mg/dL 9.0 Magnesium (1.8-2.4) mg/dL 1.7 L Cancelled Total Bilirubin (0.2-1.0) mg/dL 0.52 AST (15-37) U/L 19 ALT (16-63) U/L 30 Alkaline Phosphatase (46-116) U/L 68 Troponin I (<or=76) ng/L < 4 NT-Pro-B Natriuret Pep (<300) pg/mL 421 H Total Protein (6.4-8.2) g/dL 7.4 Albumin (3.4-5.0) g/dL 3.3 L TSH (0.36-3.74) uIU/mL 9.51 H Free T4 (0.76-1.46) ng/dL COVID-19 Source Nasopharynx SARS-CoV-2 (PCR) (Negative) Negative Influenza Type A (PCR) (Negative) Positive A Influenza Type B (PCR) (Negative) Negative RSV (PCR) (Negative) Negative Range/Units 11/29/24 22:42 WBC (4.4-10.8) 10^3/uL RBC (4.36-5.78) 10^6/uL Hgb (13.5-17.5) g/dL Hct (40.0-50.0) % MCV (80-95) fL MCH (27.0-33.0) pg MCHC (32.0-36.0) % RDW (11.8-14.1) % Plt Count (130-400) 10^3/uL MPV (8.0-11.0) fL Immature Gran % % Neutrophils % % Lymphocytes % % Monocytes % % Eosinophils % % Basophils % % Nucleated RBC % (0.0-0.3) % Absolute Neutrophils (1.2-6.7) 10^3/uL Absolute Lymphocytes (1.2-3.4) 10^3/uL Absolute Monocytes (0.1-0.8) 10^3/uL Absolute Eosinophils (0.0-0.7) 10^3/uL Absolute Basophils (0.0-0.2) 10^3/uL Sodium (136-145) mmol/L Potassium (3.5-5.1) mmol/L Chloride (98-107) mmol/L Carbon Dioxide (21.0-32.0) mmol/L Anion Gap (3-11) mmol/L BUN (7-18) mg/dL Creatinine (0.70-1.30) mg/dL Est GFR (CKD-EPI 2020) (mL/min/1.73m2) Glucose (74-106) mg/dL Calcium (8.5-10.1) mg/dL Magnesium (1.8-2.4) mg/dL Total Bilirubin (0.2-1.0) mg/dL AST (15-37) U/L ALT (16-63) U/L Alkaline Phosphatase (46-116) U/L Troponin I (<or=76) ng/L NT-Pro-B Natriuret Pep (<300) pg/mL Total Protein (6.4-8.2) g/dL Albumin (3.4-5.0) g/dL TSH (0.36-3.74) uIU/mL Cancelled Free T4 (0.76-1.46) ng/dL 1.10 COVID-19 Source SARS-CoV-2 (PCR) (Negative) Influenza Type A (PCR) (Negative) Influenza Type B (PCR) (Negative) RSV (PCR) (Negative) Quality:SDOH Health Related Social Needs: No Data to Display PFSH All Active Problems (Updated 11/30/24 @ 00:14 by Shaal Rodriguez MD) Asthma (Chronic) Influenza A (Acute) Ulnar neuropathy of right upper extremity (Acute) Carpal tunnel syndrome on both sides (Acute) Medical History (Updated 11/30/24 @ 00:14 by Shala Rodriguez MD) Asthma, mild persistent Subcutaneous nodule of both hands Multiple joint pain Dysuria Mass of hand Seizure disorder Opioid dependence Erectile dysfunction Major depression in remission Pes planovalgus Rotator cuff syndrome Intermittent claudication 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 What type of physical activity do you participate in: walking and additional Details: yard work, splitting wood Do you feel safe at home: Yes Do you feel safe in your relationship?: Yes
[2024-11-29 22:39] LABS: COVID-19 PCR Negative (Negative); Influenza A PCR Positive (Negative); Influenza B PCR Negative (Negative); RSV PCR Negative (Negative)
[2024-11-29] MEDS: Normal Saline 500 ML IV (22:39)
[2024-11-29 22:42] LABS: Source Nasopharynx
[2024-11-29 22:49] LABS: Abs Immature Grans 0.05 10^3/uL (0.0-0.06); Absolute Basophil Count 0.04 10^3/uL (0.0-0.2); Absolute Eosinophil Count 0.03 10^3/uL (0.0-0.7); Absolute Lymphocyte Count 1.29 10^3/uL (1.2-3.4); Absolute Monocyte Count 1.29 10^3/uL (0.1-0.8); Absolute Neutrophil Count 7.26 10^3/uL (1.2-6.7); Basophils % 0.4 %; Eosinophils % 0.3 %; HCT 33.6 % (40.0-50.0); HGB 11.6 g/dL (13.5-17.5); Immature Grans % 0.5 %; MCH 30.6 pg (27.0-33.0); MCHC 34.5 % (32.0-36.0); MCV 89 fL (80-95); MPV 8.9 fL (8.0-11.0); Neutrophils % 72.8 %; Platelet Count 235 10^3/uL (130-400); RBC 3.79 10^6/uL (4.36-5.78); RDW 12.8 % (11.8-14.1); RDW-SD 41.9 fL; WBC 9.96 10^3/uL (4.4-10.8)
[2024-11-29] MEDS: Magnesium Gluconate 500 MG TAB 1000 MG PO (22:54)
[2024-11-29 23:14] LABS: ALT 30 U/L (16-63); AST 19 U/L (15-37); Albumin 3.3 g/dL (3.4-5.0); Alkaline Phosphatase 68 U/L (46-116); Anion Gap 5.3 mmol/L (3-11); BUN 20 mg/dL (7-18); Bilirubin, Total 0.52 mg/dL (0.2-1.0); CO2 30.7 mmol/L (21.0-32.0); Chloride 97 mmol/L (98-107); Estimated GFR 90.56 (mL/min/1.73m2); Glucose 108 mg/dL (74-106); Magnesium 1.7 mg/dL (1.8-2.4); NT-proBNP 421 pg/mL (<300); Potassium 3.6 mmol/L (3.5-5.1); Sodium 133 mmol/L (136-145); TSH (W/Ref FT4) 9.51 uIU/mL (0.36-3.74); Total Protein 7.4 g/dL (6.4-8.2); Troponin I < 4 ng/L (<or=76)
--- NOTE | 2024-11-29 23:45 | RT.EKG_ITS ---
APPROVED REPORT Exam: Resting ECG Reason for Exam: QT Patient Location: E HR:62 bpm ECG Measurements Heart Rate 62 AXIS PA 176 P 67 QRSd 82 QRS 59 QT 434 T 87 QTc 442 Conclusion Sinus rhythm...normal P axis, V-rate 60- [address] segment or T wave abnormalities to suggest occlusive [place]
--- NOTE | 2024-11-29 23:52 | DI.VRAD_ITS ---
PROCEDURE INFORMATION: Exam: XR Chest Exam date and time: 11/29/2024 10:50 PM Age: 54 years old Clinical indication: Other: Fever, cough x 1 month TECHNIQUE: Imaging protocol: Radiologic exam of the chest. Views: 2 views. COMPARISON: CT CHEST W 05/03/2024 11:26 PM FINDINGS: Lungs: There are left lower lobe infiltrates. Pleural spaces: Unremarkable. No pleural effusion. No pneumothorax. Heart/Mediastinum: Unremarkable. No cardiomegaly. Bones/joints: Post ACDF of the lower cervical spine. Compression deformity at the thoracolumbar junction involving the L1 vertebral body. IMPRESSION: Left lower lobe pneumonia. Dictated and Authenticated by: Clay Finn MD. Orderin Jennifer Last MD
[2024-11-30] VITALS: PULSE 64; RESP 16; O2SAT 92
[2024-11-30 00:01] VITALS: BP 100/62; PULSE 63; PULSE 64; RESP 13; O2SAT 92
[2024-11-30 00:10] VITALS: PULSE 63; RESP 15; O2SAT 92
[2024-11-30] MEDS: Albuterol HFA 8 GM 60 PUFF INH IH (00:12)
[2024-11-30] MEDS: Inhaler, Assist Device 1 EACH MC (00:13)
[2024-11-30 00:17] VITALS: BP 104/62; PULSE 66; RESP 16; O2SAT 96
[2024-11-30 00:24] VITALS: BP 104/62; PULSE 66; RESP 16; TEMP 37.2; O2SAT 96
[2024-11-30] MEDS: Amoxicillin 875/Clav. 125 TAB PO (00:26)
[2024-11-30] MEDS: Amox. 875/Clav. 125, 2 TABS/BTL 1 TAB PO (00:27)
== END 2024-11-30 00:24 | disposition home or self-care (01) ==
PROVIDERS: Emergency Provider Student in an Organized Health Care Education/Training Program; PCP Nurse Practitioner Psychiatric/Mental Health
DX: J10.1 Influenza due to other identified influenza virus with other respiratory manifestations (principal); J44.89 Other specified chronic obstructive pulmonary disease; E03.9 Hypothyroidism, unspecified; E78.2 Mixed hyperlipidemia; I10 Essential (primary) hypertension; E11.9 Type 2 diabetes mellitus without complications; Z79.84 Long term (current) use of oral hypoglycemic drugs; F17.210 Nicotine dependence, cigarettes, uncomplicated
CPT/HCPCS: 80053; 87637; 93005; 96361; 96374; 99285; 71046; 83735; 83880; 84439; 84443; 84484; 85025; 93010; J2405

== ENCOUNTER → 2025-01-07 13:36 | Outpatient (BNVA) | payer MEDICARE, MEDICAID, SELFPAY | PROVIDERS: PCP Student in an Organized Health Care Education/Training Program; Referring Provider Nurse Practitioner Psychiatric/Mental Health; Visit Provider Psychiatry & Neurology Neurology | DX: R56.9 Unspecified convulsions (principal); Q28.3 Other malformations of cerebral vessels | CPT/HCPCS: 99205; G2212 ==

== ENCOUNTER 2025-02-07 16:57 | Outpatient (CLI) | payer MEDICARE, MEDICAID, SELFPAY ==
--- NOTE | 2025-02-07 16:40 | DI.RAD_ITS ---
Exam(s) XR CHEST 2V PA LATERAL EXAM: XR CHEST 2V PA LATERAL CLINICAL HISTORY: Acute cough, R05.1;current smoker with nonresolving cough after respiratory TECHNIQUE: 2D digital imaging was performed. Two views. COMPARISON: CT CT CHEST W from 05/03/2024 CR,XR XR CHEST 2V PA LATERAL from 11/29/2024 FINDINGS: HEART: Normal size. Aorta: Not dilated. PULMONARY VASCULATURE: Normal. MEDIASTINUM: Unremarkable. LUNGS: Hyperinflated. Perihilar interstitial prominence. No area of consolidation. PLEURAL SPACE: No pleural effusion or pneumothorax. BONE:Stable compression fracture at the thoracolumbar junction. SOFT TISSUES: Unremarkable. IMPRESSION: Hyperinflation and perihilar interstitial changes could indicate reactive airways disease and or bron chitis. DATA REPOSITORY: RADIATION DOSE DELIVERED:
--- NOTE | 2025-02-07 17:19 | DI.VRAD_ITS ---
PROCEDURE INFORMATION: Exam: XR Chest Exam date and time: 02/07/2025 4:27 PM Age: 54 years old Clinical indication: Other: Acute cough, current smoker with nonresolving cough after respiratory, viral illness in November, coarse lung sounds l>r, TECHNIQUE: Imaging protocol: Radiologic exam of the chest. Views: 2 views. COMPARISON: CR XR CHEST 2V PA LATERAL 11/29/2024 10:50 PM FINDINGS: Lungs: The lungs are hyperinflated, consistent with underlying small airways disease. There is perihilar interstitial prominence. There is peribronchial thickening There are perihilar streaky densities present. These findings are most consistent with bronchitis. No evidence of lobar pneumonia. The pulmonary vasculature is normal. Pleural spaces: There is no evidence of pneumothorax. There are no pleural effusions present. Heart/Mediastinum: The cardiac silhouette is within normal limits. The mediastinum is normal. Bones/joints: Compression fracture at the thoracolumbar junction unchanged compared to 11/29/2024. The spine, sternum, ribs, and pectoral girdles are unremarkable. Soft tissues: There are no soft tissue masses or calcifications. Gastrointestinal tract: There is moderate increased colonic fecal content. The colon is mildly distended. These findings suggest a moderate degree of constipation. Clinical correlation recommended. IMPRESSION: 1. Findings most consistant with bronchitis. 2. No evidence of lobar pneumonia. 3. The lungs are hyperinflated, consistent with underlying small airways disease. 4. There is moderate increased colonic fecal content. The colon is mildly distended. These findings suggest a moderate degree of constipation. Clinical correlation recommended. Dictated and Authenticated by: Wayne Hearn MD. Orderin Gunner Salinas MD
== END 2025-02-07 17:17 ==
PROVIDERS: PCP Student in an Organized Health Care Education/Training Program; Visit Provider Student in an Organized Health Care Education/Training Program
DX: R05.1 Acute cough (principal); R91.8 Other nonspecific abnormal finding of lung field
CPT/HCPCS: 71046

== ENCOUNTER 2025-02-07 20:43 | Outpatient (REF) | payer MEDICARE, SELFPAY ==
[2025-02-07 19:17] LABS: HCT 35.7 % (40.0-50.0); HGB 12.5 g/dL (13.5-17.5); MCH 30.5 pg (27.0-33.0); MCV 87 fL (80-95); MPV 9.4 fL (8.0-11.0); Platelet Count 303 10^3/uL (130-400); RDW 13.1 % (11.8-14.1); RDW-SD 41.7 fL; WBC 15.85 10^3/uL (4.4-10.8)
[2025-02-07 19:41] LABS: Anion Gap 10.6 mmol/L (3-11); BUN 14 mg/dL (7-18); CO2 24.4 mmol/L (21.0-32.0); Calcium 9.6 mg/dL (8.5-10.1); Chloride 103 mmol/L (98-107); Estimated GFR 90.56 (mL/min/1.73m2); FREE T4 0.92 ng/dL (0.76-1.46); Glucose 101 mg/dL (74-106); Potassium 4.2 mmol/L (3.5-5.1); Sodium 138 mmol/L (136-145); TSH 4.59 uIU/mL (0.36-3.74)
== END 2025-02-07 20:44 | disposition home or self-care (01) ==
LOC: NCHCN 20:43
PROVIDERS: PCP Student in an Organized Health Care Education/Training Program; Visit Provider Student in an Organized Health Care Education/Training Program
DX: E03.9 Hypothyroidism, unspecified (principal); R05.1 Acute cough
CPT/HCPCS: 80048; 85027; 84439; 84443

== ENCOUNTER → 2025-02-25 14:21 | Outpatient (BNVA) | payer MEDICARE, SELFPAY | PROVIDERS: PCP Student in an Organized Health Care Education/Training Program; Referring Provider Student in an Organized Health Care Education/Training Program; Visit Provider Student in an Organized Health Care Education/Training Program | DX: Z12.11 Encounter for screening for malignant neoplasm of colon (principal); Z86.0109 Personal history of other colon polyps | CPT/HCPCS: S0285 ==

== ENCOUNTER 2025-03-07 09:54 | Outpatient (CLI) | payer MEDICARE, MEDICAID, SELFPAY ==
--- NOTE | 2025-03-07 09:45 | RT.EKG_ITS ---
APPROVED REPORT Exam: Resting ECG Reason for Exam: High risk medication use Patient Location: O HR:65 bpm ECG Measurements Heart Rate 65 AXIS WA 195 P 72 QRSd 86 QRS 67 QT 439 T 76 QTc 457 Conclusion Sinus rhythm...normal P axis, V-rate 50- 99 Normal Electrocardiogram
== END 2025-03-07 09:55 | disposition home or self-care (01) ==
PROVIDERS: PCP Student in an Organized Health Care Education/Training Program; Visit Provider Family Medicine
DX: Z79.899 Other long term (current) drug therapy (principal)
CPT/HCPCS: 93005; 93010

== ENCOUNTER → 2025-03-12 09:04 | Outpatient (BNVA) | payer MEDICARE, MEDICAID, SELFPAY | PROVIDERS: PCP Student in an Organized Health Care Education/Training Program; Referring Provider Student in an Organized Health Care Education/Training Program; Visit Provider Physician Assistant Surgical | DX: J44.9 Chronic obstructive pulmonary disease, unspecified (principal); J45.30 Mild persistent asthma, uncomplicated; F17.210 Nicotine dependence, cigarettes, uncomplicated | CPT/HCPCS: 99215 ==

== ENCOUNTER 2025-03-19 02:39 | Outpatient (CLI) | payer MEDICARE, MEDICAID, SELFPAY ==
--- NOTE | 2025-03-31 14:44 | W.PFT ---
Date of service: 03/19/25 Time of Service: 15:01 Pulmonary Function Test Result Indications: COPD Interpretation Spirometry: No airflow limitation. Lung Volumes: Normal lung volumes Diffusion Capacity: Normal diffusion Airway Pressure: Normal airways resistance Impression Normal pulmonary function testing Clinical Correlation therefore is recommended.
== END 2025-03-19 02:40 | disposition home or self-care (01) ==
LOC: RT 02:40
PROVIDERS: PCP Student in an Organized Health Care Education/Training Program; Visit Provider Student in an Organized Health Care Education/Training Program
DX: J44.9 Chronic obstructive pulmonary disease, unspecified (principal); J45.30 Mild persistent asthma, uncomplicated
CPT/HCPCS: 94726; 94729; 94010

== ENCOUNTER → 2025-07-08 12:26 | Outpatient (BNVA) | payer MEDICARE, MEDICAID, SELFPAY | PROVIDERS: PCP Student in an Organized Health Care Education/Training Program; Referring Provider Student in an Organized Health Care Education/Training Program; Visit Provider Psychiatry & Neurology Neurology | DX: R56.9 Unspecified convulsions (principal); Q28.3 Other malformations of cerebral vessels; G47.00 Insomnia, unspecified; Z59.00 Homelessness unspecified; E11.59 Type 2 diabetes mellitus with other circulatory complications; I10 Essential (primary) hypertension; J45.909 Unspecified asthma, uncomplicated; J44.9 Chronic obstructive pulmonary disease, unspecified | CPT/HCPCS: 99214 ==

== ENCOUNTER 2025-09-19 11:46 | Outpatient (REF) | payer MEDICARE, MEDICAID, SELFPAY ==
[2025-09-19 14:55] LABS: HCT 35.1 % (40.0-50.0); HGB 11.7 g/dL (13.5-17.5); MCH 30.5 pg (27.0-33.0); MCHC 33.3 % (32.0-36.0); MCV 91 fL (80-95); MPV 9.1 fL (8.0-11.0); Platelet Count 296 10^3/uL (130-400); RBC 3.84 10^6/uL (4.36-5.78); RDW 13.0 % (11.8-14.1); RDW-SD 43.1 fL; WBC 8.68 10^3/uL (4.4-10.8)
[2025-09-19 15:22] LABS: TSH (W/Ref FT4) 8.18 uIU/mL (0.55-4.78)
== END 2025-09-19 11:47 | disposition home or self-care (01) ==
LOC: NCHCN 11:46
PROVIDERS: PCP Student in an Organized Health Care Education/Training Program; Visit Provider Student in an Organized Health Care Education/Training Program
DX: E03.9 Hypothyroidism, unspecified (principal); M54.6 Pain in thoracic spine
CPT/HCPCS: 85027; 84439; 84443